=== PATIENT | male | born 1975 | race Caucasian/White ===

== ENCOUNTER 2017-01-24 13:17 | Emergency (ER) | payer OTHER ==
[~2017-01-24] VITALS: Ht 180.3 cm; Wt 109.3 kg
[~2017-01-24 13:17] MED LIST: FLUT1INH INH; METH10TA2 PO; OXYC20TA50 PO; RANI150T3 PO; VNTHFA/IN INH
[2017-01-24 13:22] VITALS: TEMP 37.1; Ht 180.3 cm; Wt 109.3 kg
[2017-01-24] MEDS ORDERED: METHYLPREDNISOLONE 125 MG VIAL IV STA (14:09)
[2017-01-24] MEDS ORDERED: ALBUT/IPRATROP 3MG/0.5MG NEB 3 ML VIAL INH STA ×2 (14:09→16:47)
--- NOTE | 2017-01-24 14:12 | EMERGENCY ROOM VISIT NOTE ---
History Report prepared by Luisa: Matthias Carlisle Under the Supervision of: Dr. Ave Gonzalez M.D. First contact with patient: 14:04 Chief Complaint: RESPIRATORY PROBLEMS Stated Complaint: BREATHING PROBLEMS Nursing Triage Summary: triage note; pt reports "for the past two days my asthma has been acting up." pt reports "i need a breathing tx, i am having trouble taking a breath and my rescue inhaler doesn't affect me." History of Present Illness The patient is a 41 year old male who presents to the Emergency Room with complaints of respiratory problems that began 2 days ago. He has a past medical history of asthma. He notes that he has a rescue inhaler and is on Brio. 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 When he woke up a couple days ago he was having shortness of breath with rib pain brought on by his breathing. He tried to take his inhaler, but it did not help. He denies any pain in his calves or any other abnormal symptoms. He denies any history of blood clots or diabetes. He denies any recent long trips. This has happened to him in the past, but it has been a long time. He does smoke a pack of cigarettes everyday. Source of History: patient Onset: 2 days ago Position: other (Respiratory System) Symptom Intensity: moderate Quality: other (Shortness of breath) Timing: constant Associated Symptoms: + chest pain (tightness with breathing) Note: He denies any other abnormal symptoms. Review of Systems See HPI for pertinent positives & negatives. A total of 10 systems reviewed and were otherwise negative. Past Medical & Surgical Medical Problems: (1) Asthma (2) bulging disk (3) Chronic back pain (4) Hypertension (5) Osteoarthritis Family History FH: heart disease FH: hypertension FH: lung disease Gallbladder disease Social History Smoking Status: Current Every Day Smoker Smokeless Tobacco Use: No Alcohol Use: heavy Drug Use: none Marital Status: Occupation Status: employed Current/Historical Medications Scheduled Fluticasone Furoate-Vilanterol (Breo Ellipta), 1 PUFF INH DAILY Methadone Hcl (Dolophine), 10 MG PO AMPM Oxycodone Hcl (Oxycontin), 20 MG PO QID Prednisone Tab (Prednisone), 10 MG PO DIRECTED Ranitidine Hcl (Zantac), 150 MG PO DAILY Scheduled PRN Albuterol Hfa (Ventolin Hfa), 2 PUFFS INH QID PRN for RESCUE INHALER Allergies Coded Allergies: Acetaminophen (Verified Allergy, Unknown, redness all over body, 01/24/17) Physical Exam Vital Signs Date Time Temp Pulse Resp B/P (MAP) Pulse Ox O2 Delivery O2 Flow Rate FiO2 01/24/17 17:20 74 18 102/58 99 01/24/17 17:00 70 13 105/58 98 Room Air 01/24/17 16:30 76 19 107/66 96 Room Air 01/24/17 15:30 66 25 103/58 92 Room Air 01/24/17 15:00 65 19 105/57 94 Room Air 01/24/17 14:36 73 20 91/66 100 Room Air 01/24/17 14:28 70 01/24/17 13:22 37.1 76 20 116/66 95 Room Air Physical Exam Vital signs reviewed. General: Well-appearing obese male, in no significant distress. HEENT: No scleral icterus, PERRLA, neck supple. Atraumatic. Cardiovascular: Regular rate and rhythm, no extra sounds. Pulmonary: Wheezing the bilateral lung baig. Increased work of breathing. Abdomen: Soft, nontender, nondistended, positive bowel sounds. Musculoskeletal: Atraumatic, no peripheral edema. Neurologic: Patient awake alert and oriented x 3. Skin: Warm, dry, no rash Medical Decision & Procedures ER Provider Diagnostic Interpretation: Radiology results as stated below per my review and radiologist interpretation: SINGLE VIEW CHEST CLINICAL HISTORY: Asthma. FINDINGS: An AP, portable, upright chest radiograph is compared to study dated 06/02/2014. The examination is degraded by portable technique, apical lordotic positioning, and patient rotation. The heart is top normal for projection. The mediastinal contour is within normal limits. Lungs appear mildly hyperinflated. No airspace consolidation, large pleural effusion, or pneumothorax is seen. The bony thorax is grossly intact. IMPRESSION: No acute cardiopulmonary abnormality. Electronically signed by: Rowdy Mckeon M.D. 01/24/2017 3:03 PM Dictated Date/Time: 01/24/2017 3:02 PM CHEST CTA for PULMONARY ARTERIES CT DOSE: 560.68 mGycm HISTORY: Shortness of breath. TECHNIQUE: Multiaxial CT images of the chest were performed following the intravenous administration of contrast to evaluate the pulmonary arteries. Maximal intensity projection images were also obtained. A dose lowering technique was utilized adhering to the principles of ALARA. COMPARISON STUDY: Chest 01/24/2017. FINDINGS: There is a normal caliber thoracic aorta with no evidence for dissection. There is no evidence for pulmonary embolus. No pleural effusions. No pneumothorax. The liver and spleen are unremarkable. There are few enlarged mediastinal lymph nodes. Dominant right peritracheal lymph node measures 2.1 x 1.6 cm. There is enlarged subcarinal lymph node measuring 3.0 x 1.5 cm. A few mildly enlarged bilateral hilar lymph nodes. Mildly enlarged lymph node posterior to the distal esophagus. This measures 1 cm. No suspicious lytic or blastic osseous lesions. The central airways are patent. Mild diffuse bronchial wall thickening. Upper lobe predominant perihilar groundglass airspace opacities seen throughout the lungs. IMPRESSION: 1. No evidence for pulmonary embolus. 2. Upper lobe predominant perihilar groundglass airspace opacities seen throughout the lungs. There is also mild mediastinal and hilar lymphadenopathy. These findings could be seen the setting of an atypical pneumonia, sarcoidosis, or less likely hypersensitivity pneumonitis. Pulmonary consultation is recommended. Electronically signed by: Michael Grace M.D. 01/24/2017 4:38 PM Dictated Date/Time: 01/24/2017 4:28 PM Laboratory Results 01/24/17 14:25 Red Blood Count 4.02, Mean Corpuscular Volume 89.6, Mean Corpuscular Hemoglobin 30.1, Mean Corpuscular Hemoglobin Concent 33.6, Mean Platelet Volume 8.9, Neutrophils (%) (Auto) 63.6, Lymphocytes (%) (Auto) 22.8, Monocytes (%) (Auto) 6.5, Eosinophils (%) (Auto) 6.6, Basophils (%) (Auto) 0.4, Neutrophils # (Auto) 4.91, Lymphocytes # (Auto) 1.76, Monocytes # (Auto) 0.50, Eosinophils # (Auto) 0.51, Basophils # (Auto) 0.03 01/24/17 14:25 Test 01/24/17 14:25 01/24/17 14:30 White Blood Count 7.72 K/uL (4.8-10.8) Red Blood Count 4.02 M/uL (4.7-6.1) Hemoglobin 12.1 g/dL (14.0-18.0) Hematocrit 36.0 % (42-52) Mean Corpuscular Volume 89.6 fL (80-100) Mean Corpuscular Hemoglobin 30.1 pg (25-34) Mean Corpuscular Hemoglobin Concent 33.6 g/dl (32-36) Platelet Count 250 K/uL (130-400) Mean Platelet Volume 8.9 fL (7.4-10.4) Neutrophils (%) (Auto) 63.6 % Lymphocytes (%) (Auto) 22.8 % Monocytes (%) (Auto) 6.5 % Eosinophils (%) (Auto) 6.6 % Basophils (%) (Auto) 0.4 % Neutrophils # (Auto) 4.91 K/uL (1.4-6.5) Lymphocytes # (Auto) 1.76 K/uL (1.2-3.4) Monocytes # (Auto) 0.50 K/uL (0.11-0.59) Eosinophils # (Auto) 0.51 K/uL (0-0.5) Basophils # (Auto) 0.03 K/uL (0-0.2) RDW Standard Deviation 42.8 fL (36.4-46.3) RDW Coefficient of Variation 13.0 % (11.5-14.5) Immature Granulocyte % (Auto) 0.1 % Immature Granulocyte # (Auto) 0.01 K/uL (0.00-0.02) Anion Gap 4.0 mmol/L (3-11) Est Creatinine Clear Calc Drug Dose 156.3 ml/min Estimated GFR () 130.2 Estimated GFR (Non- 112.3 BUN/Creatinine Ratio 17.8 (10-20) Calcium Level 8.4 mg/dl (8.5-10.1) Total Bilirubin 0.4 mg/dl (0.2-1) Direct Bilirubin 0.1 mg/dl (0-0.2) Aspartate Amino Transf (AST/SGOT) 18 U/L (15-37) Alanine Aminotransferase (ALT/SGPT) 17 U/L (12-78) Alkaline Phosphatase 55 U/L (45-117) Total Protein 6.7 gm/dl (6.4-8.2) Albumin 3.2 gm/dl (3.4-5.0) Bedside D-Dimer > 450 ng/mlFEU (0-450) Bedside Troponin I < 0.030 ng/ml (0-0.045) Laboratory results per my review. Medications Administered Medications (Trade) Dose Ordered Sig/Brant Route Start Time Stop Time Status Last Admin Dose Admin Albuterol/ Ipratropium (Duoneb) 3 ml NOW STAT INH 01/24/17 14:09 01/24/17 14:11 DC 01/24/17 14:32 3 ML Methylprednisolone Sodium Succinate (Solu-Medrol IV) 125 mg NOW STAT IV 01/24/17 14:09 01/24/17 14:11 DC 01/24/17 14:32 125 MG Albuterol/ Ipratropium (Duoneb) 3 ml NOW STAT INH 01/24/17 16:47 01/24/17 16:48 DC 01/24/17 17:04 3 ML ECG Indication: SOB/dyspnea Rate (beats per minute): 64 Rhythm: normal sinus Findings: no acute ischemic change, no ectopy ED Course 1404: Past medical records reviewed. The patient was evaluated in room B12B. A complete history and physical examination was performed. 1409: Ordered Solu-Medrol IV 125 mg IV, DuoNeb 3 ml INH 1647: Ordered DuoNeb 3 ml INH 1733: Upon reevaluation, the patient appeared to have improvement of his symptoms. I discussed findings with him. He verbalized agreement of the treatment plan. He was discharged home. Medical Decision Differential diagnosis: Etiologies such as infections, reactive airway disease, pneumonia, pneumothorax , COPD, CHF, cardiac ischemia, pulmonary embolism, musculoskeletal, gastrointestinal, as well as others were entertained. This pt was evaluated and appeared to be in no distress. IV access was obtained and lab work was drawn. Pt was placed on the youth nutritional monitor. He was given a duoneb treatment, IV solumedral. CXR is clear. D-dimer is elevated. Chest CT is negative for pulmonary emboli. There is a concern for "Upper lobe predominant perihilar groundglass airspace opacities seen throughout the lungs. There is also mild mediastinal and hilar lymphadenopathy. These findings could be seen the setting of an atypical pneumonia, sarcoidosis, or less likely hypersensitivity pneumonitis. Pulmonary consultation is recommended." Pt was given a prednisone taper, advised to stop smoking. He will use albuterol 2 puffs every 4 hours as needed. He has a normal WBC and no fever, no ATBx at this time. He will f/u with PCP and pulmonary medicine ALEISHA. He will return to the ED for worsening of symptoms or any medical concerns. Medication Reconcilliation Current Medication List: was personally reviewed by me Blood Pressure Screening Patient's blood pressure: Normal blood pressure Blood pressure disposition: Did not require urgent referral Impression Primary Impression: Reactive airway disease Scribe Attestation The scribe's documentation has been prepared under my direction and personally reviewed by me in its entirety. I confirm that the note above accurately reflects all work, treatment, procedures, and medical decision making performed by me. Departure Information Dispostion Home / Self-Care Prescriptions Prednisone Tab (PREDNISONE) 10 Mg Tab 10 MG PO DIRECTED, #31 TAB 40 mg for 4 days, 30 mg for 3 days, 20 mg for 2 days, 10 mg for 2 days. Prov: Ave Gonzalez M.D. 01/24/17 Referrals Ludwin Garcias M.D. (PCP) Hakan Maza MD Forms HOME CARE DOCUMENTATION FORM, IMPORTANT VISIT INFORMATION, WORK / SCHOOL INSTRUCTIONS Patient Instructions My [facility] Additional Instructions Diagnosis: Reactive airway disease Prednisone 40 mg for 4 more days, 30 mg for 3 days, 20 mg for 2 days, 10 mg for 2 days Albuterol 2 puffs every 6 hours as needed for wheezing. Follow up with Dr Garcias this week. You will need pulmonary medicine consulation (Dr Maza) for CT chest findings. Stop smoking Return to the ED for worsening of symptoms or any medical concerns.
[2017-01-24 14:43] LABS: BASO % 0.4 %; BASO ABS # 0.03 K/uL (0-0.2); COMPLETE YES; EOS % 6.6 %; IG% 0.1 %; LYMPH % 22.8 %; LYMPH ABS # 1.76 K/uL (1.2-3.4); MEAN CELL VOLUME 89.6 fL (80-100); MEAN CORPUSCULAR HEMOGLOBIN 30.1 pg (25-34); MEAN CORPUSCULAR HGB CONC 33.6 g/dl (32-36); MEAN PLATELET VOLUME 8.9 fL (7.4-10.4); MONO % 6.5 %; NEUT % 63.6 %; PLATELET COUNT 250 K/uL (130-400); RED BLOOD COUNT 4.02 M/uL (4.7-6.1); WHITE BLOOD COUNT 7.72 K/uL (4.8-10.8)
[2017-01-24 14:49] LABS: POINT OF CARE TROPONIN I < 0.030 ng/ml (0-0.045)
[2017-01-24 15:00] LABS: BUN/CREATININE RATIO 17.8 (10-20); CALCIUM 8.4 mg/dl (8.5-10.1); CREATININE 0.79 mg/dl (0.60-1.40); POTASSIUM 3.5 mmol/L (3.5-5.1)
--- NOTE | 2017-01-24 15:04 | DIAGNOSTIC IMAGING REPORT ---
SINGLE VIEW CHEST CLINICAL HISTORY: Asthma. FINDINGS: An AP, portable, upright chest radiograph is compared to study dated 06/02/2014. The examination is degraded by portable technique, apical lordotic positioning, and patient rotation. The heart is top normal for projection. The mediastinal contour is within normal limits. Lungs appear mildly hyperinflated. No airspace consolidation, large pleural effusion, or pneumothorax is seen. The bony thorax is grossly intact. IMPRESSION: No acute cardiopulmonary abnormality. Electronically signed by: Rowdy Mckeon M.D. 01/24/2017 3:03 PM Dictated Date/Time: 01/24/2017 3:02 PM
[2017-01-24] MEDS ORDERED: OPTIRAY 320 IV PRN (16:00)
--- NOTE | 2017-01-24 16:39 | DIAGNOSTIC IMAGING REPORT ---
CHEST CTA for PULMONARY ARTERIES CT DOSE: 560.68 mGycm HISTORY: Shortness of breath. TECHNIQUE: Multiaxial CT images of the chest were performed following the intravenous administration of contrast to evaluate the pulmonary arteries. Maximal intensity projection images were also obtained. A dose lowering technique was utilized adhering to the principles of ALARA. COMPARISON STUDY: Chest 01/24/2017. FINDINGS: There is a normal caliber thoracic aorta with no evidence for dissection. There is no evidence for pulmonary embolus. No pleural effusions. No pneumothorax. The liver and spleen are unremarkable. There are few enlarged mediastinal lymph nodes. Dominant right peritracheal lymph node measures 2.1 x 1.6 cm. There is enlarged subcarinal lymph node measuring 3.0 x 1.5 cm. A few mildly enlarged bilateral hilar lymph nodes. Mildly enlarged lymph node posterior to the distal esophagus. This measures 1 cm. No suspicious lytic or blastic osseous lesions. The central airways are patent. Mild diffuse bronchial wall thickening. Upper lobe predominant perihilar groundglass airspace opacities seen throughout the lungs. IMPRESSION: 1. No evidence for pulmonary embolus. 2. Upper lobe predominant perihilar groundglass airspace opacities seen throughout the lungs. There is also mild mediastinal and hilar lymphadenopathy. These findings could be seen the setting of an atypical pneumonia, sarcoidosis, or less likely hypersensitivity pneumonitis. Pulmonary consultation is recommended. Electronically signed by: Michael Grace M.D. 01/24/2017 4:38 PM Dictated Date/Time: 01/24/2017 4:28 PM
[2017-01-24] MEDS ORDERED: PRED10TA PO (17:06)
[2017-01-24 17:20] VITALS: BP 102/58; PULSE 74; O2SAT 99
== END 2017-01-24 17:20 | disposition home or self-care (01) ==
LOC: C.EDB 13:18
DX: J45.909 Unspecified asthma, uncomplicated (principal); F17.210 Nicotine dependence, cigarettes, uncomplicated; I10 Essential (primary) hypertension; Z79.51 Long term (current) use of inhaled steroids; M54.9 Dorsalgia, unspecified; G89.29 Other chronic pain; Z79.52 Long term (current) use of systemic steroids

== ENCOUNTER 2017-04-11 20:43 | Emergency (ER) | payer OTHER ==
[~2017-04-11] VITALS: Ht 182.9 cm; Wt 100.0 kg
[~2017-04-11 20:43] MED LIST changes: +PRED10TA PO
[2017-04-11 20:50] VITALS: TEMP 37.1; Ht 182.9 cm; Wt 100.0 kg
[2017-04-11] MEDS ORDERED: SODIUM CHLORIDE 0.9% 1000ML 1,000 ML IV STA (20:53)
[2017-04-11] MEDS ORDERED: ALBUT/IPRATROP 3MG/0.5MG NEB 3 ML VIAL INH STA (20:53)
[2017-04-11 21:07] VITALS: O2SAT 94
[2017-04-11 21:27] LABS: BASO % 0.2 %; BASO ABS # 0.04 K/uL (0-0.2); COMPLETE YES; EOS % 0.5 %; HEMATOCRIT 41.9 % (42-52); IG% 0.2 %; LYMPH ABS # 0.81 K/uL (1.2-3.4); MEAN CELL VOLUME 92.5 fL (80-100); MEAN CORPUSCULAR HEMOGLOBIN 31.3 pg (25-34); MEAN CORPUSCULAR HGB CONC 33.9 g/dl (32-36); MEAN PLATELET VOLUME 8.9 fL (7.4-10.4); MONO % 9.9 %; NEUT % 85.2 %; PLATELET COUNT 294 K/uL (130-400); RED BLOOD COUNT 4.53 M/uL (4.7-6.1); WHITE BLOOD COUNT 20.17 K/uL (4.8-10.8)
--- NOTE | 2017-04-11 21:30 | DIAGNOSTIC IMAGING REPORT ---
CHEST ONE VIEW PORTABLE CLINICAL HISTORY: Overdose COMPARISON STUDY: Chest radiograph and chest CT January 24, 2017. FINDINGS: Lordotic positioning is noted. No pneumothorax or pleural effusion is noted. Cardiomediastinal silhouette is normal. Pulmonary vascularity is normal. The appearance of the chest is unchanged. IMPRESSION: No acute cardiopulmonary findings. Electronically signed by: Kiran Mora M.D. 04/11/2017 9:29 PM Dictated Date/Time: 04/11/2017 9:28 PM
[2017-04-11 21:36] LABS: PARTIAL THROMBOPLASTIN RATIO 0.8; PROTHROMBIN TIME (PATIENT) 10.1 SECONDS (9.0-12.0)
[2017-04-11 21:52] LABS: ALT/SGPT 20 U/L (12-78); BLOOD UREA NITROGEN 15 mg/dl (7-18); BUN/CREATININE RATIO 12.3 (10-20); CALCIUM 8.2 mg/dl (8.5-10.1); CARBON DIOXIDE 28 mmol/L (21-32); CHLORIDE 105 mmol/L (98-107); CREATININE 1.21 mg/dl (0.60-1.40); GLUCOSE 165 mg/dl (70-99); POTASSIUM 3.7 mmol/L (3.5-5.1); SODIUM 139 mmol/L (136-145)
[2017-04-11 21:53] LABS: ACETAMINOPHEN < 2 ug/ml (10-30)
--- NOTE | 2017-04-11 21:56 | EMERGENCY ROOM VISIT NOTE ---
History Report prepared by Luisa: Makenna Saldaña Under the Supervision of: Dr. Gino Goss M.D. First contact with patient: 20:47 Chief Complaint: OVERDOSE (INTENTIONAL) Stated Complaint: OVERDOSE History of Present Illness The patient is a 41 year old male who presents to the Emergency Room with complaints of an episode of an overdose occurring prior to arrival. The patient states that he was at a friend's house and snorted 3 20 mg Oxycodone. He reports that they are his prescription for his chronic back pain. He states that he is also on Methadone. 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 He reports that his friends were snorting heroine and he blew the straw out before using it for the Oxycodone, but thinks that he may not have gotten it all. Per nursing staff, medics found the patient unresponsive at the dinner table with his oxygen stats in the 50s. Nursing staff states that medics started bagging him and he came to. The patient complains of feeling groggy, a little shortness of breath, and having a dry mouth. The patient notes that he is a smoker. The patient denies drinking alcohol and leg pain. Pt denies headache, fevers, chills, diaphoresis, visual changes, neck pain, chest pain, nausea, vomiting, abdominal pain, back pain, melena, hematochezia, urinary symptoms, numbness, weakness, lymphadenopathy, rash, or other complaints. Source of History: patient, nursing staff Onset: prior to arrival Position: other (global) Quality: other (global) Timing: other (episode) Associated Symptoms: + SOB Note: The patient complains of feeling groggy and having a dry mouth. The patient denies leg pain. Review of Systems See HPI for pertinent positives and negatives. A total of ten systems were reviewed and were otherwise negative. Past Medical & Surgical Medical Problems: (1) Asthma (2) bulging disk (3) Chronic back pain (4) Hypertension (5) Osteoarthritis Family History FH: heart disease FH: hypertension FH: lung disease Gallbladder disease Social History Smoking Status: Current Every Day Smoker Alcohol Use: heavy Drug Use: none Marital Status: Housing Status: lives with significant other Occupation Status: employed Current/Historical Medications Scheduled Fluticasone Furoate-Vilanterol (Breo Ellipta), 1 PUFF INH DAILY Methadone Hcl (Dolophine), 10 MG PO AMPM Oxycodone Hcl (Oxycontin), 20 MG PO QID Scheduled PRN Albuterol Hfa (Ventolin Hfa), 2 PUFFS INH QID PRN for SOB/Wheezing Ranitidine Hcl (Zantac), 150 MG PO DAILY PRN for Heartburn Allergies Coded Allergies: Acetaminophen (Verified Allergy, Unknown, redness all over body, 01/24/17) Physical Exam Vital Signs Date Time Temp Pulse Resp B/P (MAP) Pulse Ox O2 Delivery O2 Flow Rate FiO2 04/12/17 00:33 78 20 99/57 93 Room Air 04/12/17 00:04 87 18 95/60 93 Room Air 04/11/17 23:44 92 20 110/63 93 Room Air 04/11/17 23:17 100 20 137/68 100 04/11/17 22:47 97/52 04/11/17 22:33 95 17 97 04/11/17 22:31 115/70 04/11/17 22:18 101 18 96 04/11/17 22:16 115/71 04/11/17 22:03 101 19 04/11/17 22:01 106/75 04/11/17 21:48 95 18 98 04/11/17 21:43 102 18 99 04/11/17 21:28 104 17 97 04/11/17 21:13 109 15 99 04/11/17 21:10 105 04/11/17 21:07 94 Nasal Cannula 6.0 04/11/17 21:05 90 Room Air 04/11/17 21:05 90 Room Air 04/11/17 20:50 37.1 118 10 113/68 90 Room Air 04/11/17 20:49 113/68 Physical Exam GENERAL: Awake, alert, well-appearing, in no distress, lethargic but arouses to voice HENT: Normocephalic, atraumatic. Oropharynx unremarkable. EYES: Normal conjunctiva. Sclera non-icteric. NECK: Supple. No nuchal rigidity. FROM. No JVD. RESPIRATORY: Wheezing on auscultation. CARDIAC: Tachycardic rate, normal rhythm. Extremities warm and well perfused. Pulses equal. ABDOMEN: Soft, non-distended. No tenderness to palpation. No rebound or guarding. No masses. RECTAL: Deferred. MUSCULOSKELETAL: Chest examination reveals no tenderness. The back is symmetrical on inspection without obvious abnormality. There is no CVA tenderness to palpation. No joint edema. LOWER EXTREMITIES: Calves are equal size bilaterally and non-tender. No edema. No discoloration. NEURO: Normal sensorium. No sensory or motor deficits noted. SKIN: No rash or jaundice noted. Medical Decision & Procedures ER Provider Diagnostic Interpretation: Radiology results as stated below per my review and radiologist interpretation: CHEST ONE VIEW PORTABLE CLINICAL HISTORY: Overdose COMPARISON STUDY: Chest radiograph and chest CT January 24, 2017. FINDINGS: Lordotic positioning is noted. No pneumothorax or pleural effusion is noted. Cardiomediastinal silhouette is normal. Pulmonary vascularity is normal. The appearance of the chest is unchanged. IMPRESSION: No acute cardiopulmonary findings. Electronically signed by: Kiran Mora M.D. 04/11/2017 9:29 PM Dictated Date/Time: 04/11/2017 9:28 PM Laboratory Results 04/11/17 21:16 Red Blood Count 4.53, Mean Corpuscular Volume 92.5, Mean Corpuscular Hemoglobin 31.3, Mean Corpuscular Hemoglobin Concent 33.9, Mean Platelet Volume 8.9, Neutrophils (%) (Auto) 85.2, Lymphocytes (%) (Auto) 4.0, Monocytes (%) (Auto) 9.9, Eosinophils (%) (Auto) 0.5, Basophils (%) (Auto) 0.2, Neutrophils # (Auto) 17.17, Lymphocytes # (Auto) 0.81, Monocytes # (Auto) 2.00, Eosinophils # (Auto) 0.10, Basophils # (Auto) 0.04 04/11/17 21:16 Test 04/11/17 00:00 04/11/17 21:16 Urine Color YELLOW Urine Appearance CLEAR (CLEAR) Urine pH 5.5 (4.5-7.5) Urine Specific [place] 1.021 (1.000-1.030) Urine Protein 1+ (NEG) Urine Glucose (UA) NEG (NEG) Urine Ketones NEG (NEG) Urine Occult Blood 1+ (NEG) Urine Nitrite NEG (NEG) Urine Bilirubin NEG (NEG) Urine Urobilinogen NEG (NEG) Urine Leukocyte Esterase NEG (NEG) Urine WBC (Auto) 1-5 /hpf (0-5) Urine RBC (Auto) 5-10 /hpf (0-4) Urine Hyaline Casts (Auto) >30 /lpf (0-5) Urine Epithelial Cells (Auto) >30 /lpf (0-5) Urine Bacteria (Auto) 1+ (NEG) Urine Renal Epithelial Cells /lpf (0-5) Urine Pathogenic Casts 0-3 GRANULAR CASTS /lpf (0) Urine Mucus PRESENT (NONE PRSENT) Urine Opiates Screen POS (NEG) Urine Methadone, Qualitative POS (NEG) Urine Barbiturates NEG (NEG) Urine Phencyclidine (PCP) Level NEG (NEG) Ur Amphetamine/Methamphetamine NEG (NEG) MDMA (Ecstasy) Screen NEG (NEG) Urine Benzodiazepines Screen NEG (NEG) Urine Cocaine Metabolite POS (NEG) Urine Marijuana (THC) NEG (NEG) White Blood Count 20.17 K/uL (4.8-10.8) Red Blood Count 4.53 M/uL (4.7-6.1) Hemoglobin 14.2 g/dL (14.0-18.0) Hematocrit 41.9 % (42-52) Mean Corpuscular Volume 92.5 fL (80-100) Mean Corpuscular Hemoglobin 31.3 pg (25-34) Mean Corpuscular Hemoglobin Concent 33.9 g/dl (32-36) Platelet Count 294 K/uL (130-400) Mean Platelet Volume 8.9 fL (7.4-10.4) Neutrophils (%) (Auto) 85.2 % Lymphocytes (%) (Auto) 4.0 % Monocytes (%) (Auto) 9.9 % Eosinophils (%) (Auto) 0.5 % Basophils (%) (Auto) 0.2 % Neutrophils # (Auto) 17.17 K/uL (1.4-6.5) Lymphocytes # (Auto) 0.81 K/uL (1.2-3.4) Monocytes # (Auto) 2.00 K/uL (0.11-0.59) Eosinophils # (Auto) 0.10 K/uL (0-0.5) Basophils # (Auto) 0.04 K/uL (0-0.2) RDW Standard Deviation 44.0 fL (36.4-46.3) RDW Coefficient of Variation 13.0 % (11.5-14.5) Immature Granulocyte % (Auto) 0.2 % Immature Granulocyte # (Auto) 0.05 K/uL (0.00-0.02) Prothrombin Time 10.1 SECONDS (9.0-12.0) Prothromb Time International Ratio 1.0 (0.9-1.1) Activated Partial Thromboplast Time 20.9 SECONDS (21.0-31.0) Partial Thromboplastin Ratio 0.8 Anion Gap 7.0 mmol/L (3-11) Est Creatinine Clear Calc Drug Dose 99.4 ml/min Estimated GFR () 86.3 Estimated GFR (Non- 74.4 BUN/Creatinine Ratio 12.3 (10-20) Osmolality 295 mOsm/kg (280-300) Calcium Level 8.2 mg/dl (8.5-10.1) Total Bilirubin 0.2 mg/dl (0.2-1) Direct Bilirubin < 0.1 mg/dl (0-0.2) Aspartate Amino Transf (AST/SGOT) 11 U/L (15-37) Alanine Aminotransferase (ALT/SGPT) 20 U/L (12-78) Alkaline Phosphatase 62 U/L (45-117) Total Creatine Kinase 74 U/L (39-308) Troponin I < 0.015 ng/ml (0-0.045) Total Protein 7.3 gm/dl (6.4-8.2) Albumin 3.7 gm/dl (3.4-5.0) Lipase 69 U/L (73-393) Salicylates Level 3.6 mg/dl (2.8-20) Acetaminophen Level < 2 ug/ml (10-30) Ethyl Alcohol mg/dL < 3.0 mg/dl (0-3) Laboratory results reviewed by me Medications Administered Medications (Trade) Dose Ordered Sig/Brant Route Start Time Stop Time Status Last Admin Dose Admin Sodium Chloride 1,000 ml @ 999 mls/hr Q1H1M STAT IV 04/11/17 20:53 04/11/17 21:53 DC 04/11/17 21:19 999 MLS/HR Albuterol/ Ipratropium (Duoneb) 3 ml NOW STAT INH 04/11/17 20:53 04/11/17 20:55 DC 04/11/17 20:50 3 ML ECG Indication: toxicologic Rate (beats per minute): 99 Rhythm: normal sinus Findings: no acute ischemic change, no ectopy Change: Repeat ECG revealed normal sinus rhythm at 82 bpm. No ischemia, no ectopy, or pericarditis. No change from prior. ED Course 2047: The patient was evaluated in room B9. A complete history and physical exam was performed. 2052: Ordered Duoneb 3 ml INH, NSS 100 ml @ 999 mls/hr IV. 5: I reevaluated the patient and he is is feeling better. 2330: The patient was reevaluated and feels better. His opiate intoxication is clearing. 0010: Patient was reevaluated. He is awake and alert. He was taken off oxygen. 0035: Patient was reassessed. He is not hypoxic. He has no shortness of breath. His lungs are clear. He feels much better. He was counseled on his misuse of the medication.I gave my usual and customary discussion regarding this issue. Return instructions were outlined and he was discharged in stable condition. Medical Decision Prior records/ancillary studies reviewed. Triage Nursing notes reviewed and agree them. The patient's history was concerning for altered mental status and probable overdose. Differential diagnosis: Etiologies such as toxicologic, infection, hypoglycemia, electrolyte abnormalities, cardiac sources, intracerebral event, neurologic, noncardiogenic pulmonary edema, as well as others were entertained. Physical examination: The patient had mildly altered sensorium. No trauma noted. ER treatment provided: IV NSS 1 L bolus DuoNeb Diagnostic interpretation by me: The electrocardiogram was negative for pathologic change. There was no QRS widening or interval prolongation. The labs revealed significant leukocytosis 20,000 which is suspect is a stress response from his near experience. Alcohol negative. Chemistries unremarkable. Imaging studies: X-ray as above The patient has a history of narcotic addiction. He is on a significant amount of pain medication from pain management. I asked him to contact his primary physician for follow-up. He was instructed to seek counseling and consider rehabilitation services. I had a long discussion about having Narcan available and instructions were given. By the evaluation outlined above other emergent etiologies such as those listed in the differential, as well as others, were deemed relatively unlikely. The patient was educated about the findings as listed above. All questions were answered and the patient was pleased with the treatment. Return instructions were outlined and the patient was discharged in stable condition. The patient was referred to his PCP tomorrow for follow-up for a recheck of the current condition. [place] Drug Monitoring Program Search Results: patient reviewed within database Drug Monitoring Findings: In the last 12 months the patient has received 2174 narcotic pills from pain management. Medication Reconcilliation Current Medication List: was personally reviewed by me Impression Primary Impression: Narcotic overdose Scribe Attestation The scribe's documentation has been prepared under my direction and personally reviewed by me in its entirety. I confirm that the note above accurately reflects all work, treatment, procedures, and medical decision making performed by me. Departure Information Dispostion Home / Self-Care Referrals Ludwin Garcias M.D. (PCP) Patient Instructions My [facility] Additional Instructions Follow-up with your primary office this week. Discuss your pain management. Discussed counseling and rehabilitation. Go to your pharmacy and chicken picker a dose of naloxone (Narcan) and read the instructions on the box. This medication can be given if an overdose of opiates occurs. Do not take medications or drugs improperly or in a way that was not prescribed to you. Return to the ER for worsening chest pain, difficulty breathing, fevers, vomiting, worsening of your condition, or as needed. Do not drive until cleared by your primary physician.
[2017-04-11 21:57] LABS: ALKALINE PHOSPHATASE 62 U/L (45-117); AST/SGOT 11 U/L (15-37)
[2017-04-11 22:17] LABS: BENZODIAZEPINE, URINE NEG (NEG); COCAINE,URINE POS (NEG); PHENCYCLIDINE, URINE NEG (NEG)
[2017-04-11 22:25] LABS: URINE APPEARANCE CLEAR (CLEAR); URINE BILIRUBIN NEG (NEG); URINE COLOR YELLOW; URINE EPITHELIAL CELL AUTO >30 /lpf (0-5); URINE NITRITE NEG (NEG); URINE PH 5.5 (4.5-7.5); URINE SPECIFIC GRAVITY 1.021 (1.000-1.030); UROBILINOGEN NEG (NEG)
[2017-04-11 22:28] LABS: MANUAL MICROSCOPIC REQUIRED? NO; REVIEW REQ? YES
[2017-04-11 22:36] LABS: URINE MUCUS PRESENT (NONE PRSENT)
[2017-04-11 22:39] LABS: URINE PATH CASTS 0-3 GRANULAR CASTS /lpf (0)
[2017-04-12 00:33] VITALS: BP 99/57; PULSE 78; O2SAT 93
[2017-04-14 09:54] LABS: COCAINE, URINE 22900 NG/ML (CUTOFF=100); COD UR NEGATIVE NG/ML (CUTOFF=50); HYDROCOD UR NEGATIVE NG/ML (CUTOFF=50); HYDROMOR UR NEGATIVE NG/ML (CUTOFF=50); METHADONE METABOLITE 470 NG/ML (CUTOFF=100); METHADONE VERIFIC 269 NG/ML (CUTOFF=100); MORPHINE UR 2590 NG/ML (CUTOFF=50); NORHYDROCODONE CONF UR NEGATIVE NG/ML (CUTOFF=50); OXYMORPH UR 175 NG/ML (CUTOFF=50)
== END 2017-04-12 00:54 | disposition home or self-care (01) ==
LOC: EDBD 20:43 → C.EDB 20:45
DX: T40.602A Poisoning by unspecified narcotics, intentional self-harm, initial encounter (principal); R06.02 Shortness of breath; M54.9 Dorsalgia, unspecified; G89.29 Other chronic pain; I10 Essential (primary) hypertension; M19.90 Unspecified osteoarthritis, unspecified site; J45.909 Unspecified asthma, uncomplicated; Z79.899 Other long term (current) drug therapy; F17.200 Nicotine dependence, unspecified, uncomplicated; Z82.49 Family history of ischemic heart disease and other diseases of the circulatory system; Z83.6 Family history of other diseases of the respiratory system; Z83.79 Family history of other diseases of the digestive system

== ENCOUNTER 2019-06-10 13:01 | Inpatient (IN) ==
--- OUTSIDE RECORDS SUMMARY | 2019-06-10 13:03 | External Medical Summary | Continuity of Care Document ---
:1975 Author Name Tomas M.DQue Address Unavailable Unavailable , Care Team Providers Name Role Phone Unavailable Unavailable Unavailable PCP, NO Unavailable Unavailable Unavailable Unavailable Unavailable Problems Kidney lesion (593.9) (N28.9) Symptomatic cholelithiasis (574.20) (K80.20) Allergies and Adverse Reactions Tylenol (Allergy) Reaction: Rash Medications No Reported Medications , M.D. Refills: 0 Procedures Procedures not documented Immunizations Immunizations not documented Social History - Smoking Status Smokes tobacco daily Plan of Treatment Planned Observations Planned Goals not documented Results No Known Results Results not documented
[2019-06-10 13:29] LABS: Basophils # (auto) 0.22 K/uL (0-0.2); Eosinophils # (auto) 0.44 K/uL (0-0.5); Eosinophils % (auto) 5.9 %; Hematocrit (blood only) 45.4 % (42-52); Hemoglobin 16.2 g/dL (14.0-18.0); Immature Granulocytes # (auto) 0.02 K/uL (0.00-0.02); Immature Granulocytes % (auto) 0.3 %; Lymphocytes # (auto) 3.44 K/uL (1.2-3.4); Lymphocytes % (auto) 46.4 %; Mean Corpuscular Hemoglobin 30.5 pg (25-34); Mean Corpuscular Hgb Conc 35.7 g/dL (32-36); Mean Corpuscular Volume 85.3 fL (80-100); Mean Platelet Volume 9.7 fL (7.4-10.4); Monocytes % (auto) 8.1 %; Neutrophils # (auto) 2.69 K/uL (1.4-6.5); Neutrophils % (auto) 36.3 %; Platelet Count 144 K/uL (130-400); RDW Coefficient of Variation 13.7 % (11.5-14.5); RDW Standard Deviation 42.6 fL (36.4-46.3); Red Blood Count 5.32 M/uL (4.7-6.1); White Blood Count 7.41 K/uL (4.8-10.8)
[2019-06-10] MEDS ORDERED: KETOROLAC TROMETHAMINE 15 MG/ML VIAL IV ONE (13:30)
[2019-06-10] MEDS ORDERED: ONDANSETRON INJ 2 MG/ML 2 ML VIAL IV STA (13:30)
[2019-06-10] MEDS ORDERED: SODIUM CHLORIDE 0.9% 1000ML 2,000 ML IV ONE (13:30)
[2019-06-10 13:49] LABS: Albumin Level 3.1 gm/dl (3.4-5.0); BUN Creatinine Ratio 10.4 (10-20); Calcium 8.9 mg/dl (8.5-10.1); Creatinine Clr Calc Pharmacy 152.7 ml/min; Est GFR (African American) 126.4; Est GFR (Non-African American) 109.1; Potassium 3.7 mmol/L (3.5-5.1)
[2019-06-10 13:56] LABS: Albumin Globulin Ratio 0.7 (0.9-2); Bilirubin,Total 4.5 mg/dl (0.2-1); Globulin 4.3 gm/dl (2.5-4.0); Total Protein 7.4 gm/dl (6.4-8.2)
[2019-06-10] MEDS ORDERED: IOVERSOL 100ml IV PRN (13:57)
--- NOTE | 2019-06-10 14:28 | CT Scan Report ---
ABDOMEN AND PELVIS CT WITH IV CONTRAST CT DOSE: 1010.85 mGycm HISTORY: Mid abdominal pain TECHNIQUE: Multiaxial CT images of the abdomen and pelvis were performed following the use of intrave nous contrast. A dose lowering technique was utilized adhering to the principles of ALARA. COMPARISON STUDY: Abdomen and pelvis CT 08/01/2014. FINDINGS: Small focus of tree-in-bud nodular densities within the base of the right lower lobe. No pn eumoperitoneum. No pneumatosis. No fractures within the visualized osseous structures. Mildly enlarge d distal paraesophageal lymph node best seen on image 53. This has slightly increased in size. This m easures 12 mm in short axis diameter. There is also periportal lymphadenopathy. There is mild inflamm atory change surrounding the second and third portion of the duodenum which demonstrate associated wa ll thickening. Mild edema tracking along the right paracolic gutter. Mild inflammatory change at the pancreatic head and angela hepatis. The main portal vein is patent. There is a punctate stone within t he left kidney. The right kidney enhances normally. No hydronephrosis. No hepatic masses. Prior andres cystectomy. Trace pelvic free fluid. The bladder is decompressed. No evidence for bowel obstruction. Normal appendix. Normal adrenal glands and spleen. IMPRESSION: 1. Bowel wall thickening involving the second and third portion of the duodenum with adjacent inflamm atory change and edema tracking along the right paracolic gutter. Findings favor a duodenitis/peptic ulcer disease. A groove pancreatitis could also have a similar appearance. Recommend correlation with pancreatic enzymes. 2. Periportal and distal paraesophageal lymphadenopathy which could be reactive. Follow-up recommende d to ensure resolution. 3. In addition, follow-up endoscopy is recommended for further evaluation of the duodenal abnormality . 4. Small cluster of tree-in-bud nodular opacities within the base of the right lower lobe. This favor s inflammatory/infectious process. ACT 112: Negative or not required by law. Electronically signed by: Michael Grace M.D. 06/10/2019 2:27 PM
[2019-06-10] MEDS ORDERED: AcetylCYSTEINE 15,000 MG in DEXTROSE 5% 200 ML IV ONE (14:52)
[2019-06-10 14:56] LABS: INR 1.2 (0.9-1.1); Prothrombin Time 11.8 Seconds (9.0-12.0)
[2019-06-10 14:58] LABS: Appearance Urine Clear (Clear); Blood Urine 3+ (Negative); Color Urine Amber; Glucose Urine UA Trace (Negative); Ketones Urine Trace (Negative); Leukocyte Esterase Urine Trace (Negative); Nitrite Urine Positive (Negative); Protein Urine 1+ (Negative); Urobilinogen Urine Positive (Negative); pH Urine 6.5 (4.5-7.5)
[2019-06-10 15:15] LABS: Bilirubin Urine 3+ (Negative); Ictotest Urine Positive (Negative)
[2019-06-10 15:19] LABS: Bacteria Urine 1+ (Negative); Hyaline Casts Urine 0-5 /lpf (0-5); Mucus Urine Present (None Prsent)
[2019-06-10 15:20] LABS: Sperm Urine Present (None Prsent)
--- NOTE | 2019-06-10 15:54 | History & Physical Report ---
Date of Service June 10, 2019 Assessment & Plan (1) RUQ abdominal pain: (2) LFT elevation: Pt is 43 y/o M with PMH opioid, methamphetamine drug abuse, currently on buprenorphine, asthma, tobacco use presented to ER with c/o abdominal pain today and dark yellow urine, fatigue and sweats x 4 days. Denies fever. Took 2 doses of 2GM Tylenol last night and this morning. In ER afebrile, P: 98 down to 74, R: 18, BP: 119/84, 95% on RA. WBC: 7, INR: 1.2, T Bili: 4.5, AST: 577, ALT: 1447, Alk Phos: 219, Lipase: 65 CT ABD/PELVIS: 1. Bowel wall thickening involving the second and third portion of the duodenum with adjacent inflammatory change and edema tracking along the right paracolic gutter. Findings favor a duodenitis/peptic ulcer disease. A groove pancreatitis could also have a similar appearance. Recommend correlation with pancreatic enzymes. 2. Periportal and distal paraesophageal lymphadenopathy which could be reactive. Follow-up recommended to ensure resolution. 3. In addition, follow-up endoscopy is recommended for further evaluation of the duodenal abnormality. 4. Small cluster of tree-in-bud nodular opacities within the base of the right lower lobe. This favors inflammatory/infectious process. DDX: pancreatitis, choledocholithiasis, acute liver injury, hepatitis, cholangitis -Tylenol level unable to be calculated secondary to icteric specimen -In ER pt given Mucomyst, 2L NSS, Zofran, Toradol -Pending urine tox screen, ETOH level, acute hepatitis panel, pending UA -LR -NPO -GI consult, Shanique METZGER aware, ERCP considered -CBC, Liver profile, CMP, lipase in am (3) Asthma: -Hold home albuterol inhaler -Albuterol nebs scheduled as has scattered wheezing (4) History of drug abuse: History opioid, methamphetamine use. Reports last used 11/2018 Currently on buprenorphine, Follows with [facility] -Will continue buprenorphine for now (5) Chronic back pain: Does not use gabapentin regularly -Hold gabapentin currently (6) Tobacco use: -Smoking cessation encouraged -Denies nicotine patch at this time DVT Prophylaxis -Low risk - Ambulate Pt does not follows with PCP for routine care. Reports previously followed with Dr Garcias Pt was seen and care coordinated with Dr Yates. See addendum History of Present Illness Chief Complaint: Abdominal pain Primary Care Provider: NO PCP Pt is 43 y/o M with PMH opioid, methamphetamine drug abuse, currently on buprenorphine, asthma, tobacco use presented to ER with c/o abdominal pain. Pt reports past 4 days noticed dark yellow urine and yesterday noticed green color hard formed stool. Also states past 4 days with fatigue and sweats. States taking his temperature at home and no noted fevers. This morning started with aching to RUQ. Pt initially denies nausea but reports nausea last night. Denies vomiting or diarrhea. Reports intermittent heartburn. Ate pancakes for breakfast this morning. Last night took 2GM Tylenol and this morning took 2 GM Tylenol. Chronic back pain and reports takes Ibuprofen 800mg three times a day approx 5 times a week. Denies alcohol use. Reports last used methamphetamines in 11/2018. Pt on buprenorphine and denies any other recent drug use. Denies herbal drugs, mushroom use. Denies h/o IV drug abuse. Hx tattoo. H/O cholecystectomy. Denies melena, hematochezia, BROOKE, dizziness, syncope, vision changes, neck pain, CP, SOB, orthopnea, palpitations, cough, sore throat, choking, otalgia, rhinorrhea, paresthesias, weakness, extremity weakness, extremity edema, rashes, dysuria, urinary frequency or retention. Allergies Allergy/AdvReac Type Severity Reaction Status Date / Time acetaminophen Allergy Unknown redness Verified 06/10/19 14:28 all over body Home Medications Home Medications Medication Instructions Recorded Confirmed Type acetaminophen [Tylenol Extra 500 mg PO Q6H PRN 06/10/19 06/10/19 History Strength] albuterol sulfate 1 - 2 puff INHALATION Q4H PRN 06/10/19 06/10/19 History buprenorphine HCl 8 mg SUBLINGUAL BID 06/10/19 06/10/19 History gabapentin 400 mg PO TID 06/10/19 06/10/19 History Past Med/Surg History Medical History Asthma Biliary colic (Acute) Chronic back pain History of drug abuse Narcotic overdose (Inactive) Osteoarthritis Reactive airway disease (Inactive) Tobacco use Surgical History History of cholecystectomy Family History Other Dementia Social History Preferred Language: Scottish Communication Ability: Effective 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 Feels Safe at Home: Yes Safety Concerns: Feels Safe At This Time Smoking Status: Current every day smoker Tobacco Type: cigarettes ; Cigarettes Per Day: 1 PPD ; Do You Dip or Chew Tobacco: No ; Second Hand Exposure: No ; Hx Alcohol Use: No Hx Substance Use: Yes substance use type: prescription drug Substance Use Type Other:: subutex twice daily prescribed Last Used Substance: Hours (ago) Review of Systems Review of Systems: All systems reviewed & are unremarkable except as noted in HPI & below Physical Exam Physical Exam: General: no distress, obese Head: normocephalic, atraumatic Eyes: PERRL, EOM's intact, conjunctiva non-injected, +icteric ENT: normal inspection external ears, nose, mucous membranes mildly dry Neck: supple, trachea midline Lungs: no respiratory distress, +scattered wheezing, no rhonchi, rales CV: RRR, no murmur, no pretibial edema Abd: normal BS, protuberant, soft, + tenderness to palpation RUQ Ext: no cyanosis, no calf tenderness Neuro: A&O x 3, no focal deficits noted, normal affect Skin: warm, dry Results & Data Vital Signs (Past 12 Hours) Vital Signs Temp Pulse Resp BP Pulse Ox 06/10/19 15:40 79 17 100 06/10/19 15:31 79 16 99 06/10/19 15:30 79 18 122/79 99 06/10/19 15:20 78 16 98 06/10/19 15:10 74 24 95 06/10/19 15:01 82 97 06/10/19 15:00 71 127/74 98 06/10/19 14:50 82 24 97 06/10/19 14:40 80 18 99 06/10/19 14:31 76 14 94 06/10/19 14:30 74 21 125/73 94 06/10/19 14:20 82 25 H 97 06/10/19 14:10 85 20 97 06/10/19 14:02 81 19 113/81 95 06/10/19 14:01 98 06/10/19 13:50 85 22 96 06/10/19 13:47 83 13 98 06/10/19 13:42 82 17 123/91 95 06/10/19 13:36 96 06/10/19 13:02 36.8 C 98 H 18 119/84 95 Laboratory Results Short CBC 06/10/19 Range/Units 13:21 WBC 7.41 (4.8-10.8) K/uL Hgb 16.2 (14.0-18.0) g/dL Hct 45.4 (42-52) % Plt Count 144 (130-400) K/uL BMP 06/10/19 13:21 Sodium 136 Potassium 3.7 Chloride 104 Carbon Dioxide 27 BUN 9 Creatinine 0.82 Glucose 163 H Calcium 8.9 Liver Function 06/10/19 Range/Units 13:21 Total Bilirubin 4.5 H (0.2-1) mg/dl AST 577 H (15-37) U/L ALT 1447 H (12-78) U/L Alkaline Phosphatase 219 H (45-117) U/L Albumin 3.1 L (3.4-5.0) gm/dl Urine 06/10/19 Range/Units 13:35 Urine Color Jaclyn Urine Appearance Clear (Clear) Urine pH 6.5 (4.5-7.5) Ur Specific [place] 1.020 (1.000-1.030) Urine Protein 1+ H (Negative) Urine Glucose (UA) Trace H (Negative) Diagnostic Findings CT ABD/PELVIS WITH CONTRAST: IMPRESSION: 1. Bowel wall thickening involving the second and third portion of the duodenum with adjacent inflammatory change and edema tracking along the right paracolic gutter. Findings favor a duodenitis/peptic ulcer disease. A groove pancreatitis could also have a similar appearance. Recommend correlation with pancreatic enzymes. 2. Periportal and distal paraesophageal lymphadenopathy which could be reactive. Follow-up recommended to ensure resolution. 3. In addition, follow-up endoscopy is recommended for further evaluation of the duodenal abnormality. 4. Small cluster of tree-in-bud nodular opacities within the base of the right lower lobe. This favors inflammatory/infectious process. Code Status & VTE Plan VTE Prophylaxis Plan VTE Prophylaxis will be ordered: No Supervising Physician Co-Signing Physician Notes HISTORY: Record reviewed. Patient interviewed and examined. Care coordinated with Ramona Colón PA-C. Please refer to her documentation for complete history. Briefly, 43-year-old male with history of asthma, chronic back pain, drug abuse currently on buprenorphine. Presented to the ED complaining of epigastric pain, malaise, dark urine. Nondrinker. Taking large doses of acetaminophen for headaches and pain (2000 mg at a time), but states that he has only taken 4 doses over past week. Has not ingested any wild mushrooms. Not on statin. EXAM: General- no distress Eyes- ? icteric sclerae (lighting suboptimal) Lungs- clear to auscultation; no respiratory distress Cardiovascular- RRR; no murmur; no gallop; no JVD; no pretibial edema Abdomen- + bowel sounds, soft, moderate epigastric tenderness Extremities- no cyanosis; no calf tenderness Neuro- alert, oriented Skin- warm & dry DATA: Hemoglobin 16.2, white count 7410, platelet count 144,000. PT 11.8, INR 1.2. Normal electrolytes, BUN 9, creatinine 0.82, random glucose 163. Total bilirubin 4.5, AST 577, ALT 1447, alkaline phosphatase 219. Lipase 65. Urine tox screen + for amphetamines / methamphetamines (preliminary). Other lab studies as noted. CT of abdomen and pelvis demonstrated bowel wall thickening involving the second third portion of the duodenum with adjacent inflammatory change and edema tracking along the right paracolic gutter. Findings suggested duodenitis/peptic ulcer disease. Periportal and distal periesophageal lymphadenopathy noted. ASSESSMENT AND PLAN: Elevated LFTs. History of drug abuse. Urine tox screen + for amphetamines / methamphetamines (preliminary). Denies consumption of alcoholic beverages. Blood alcohol undetectable. Status post cholecystectomy. Consider viral hepatitis (hepatitis A, hepatitis B, hepatitis C, CMV, EBV). Consider medication/chemical etiology. Consider choledocholithiasis. Using excessive amounts of acetaminophen. Unable to determine acetaminophen level because serum was icteric. Acetaminophen toxicity unlikely, but best to plate safe and treat with course of intravenous acetylcysteine. Hepatitis panel ordered and pending. GI consulted for their input and further evaluation. Please refer to LEATHA Colón's documentation for discussion of other issues.
--- NOTE | 2019-06-10 16:10 | Gastrointestinal Consultation ---
Date of Consultation June 10, 2019 Assessment & Plan (1) LFT elevation: (2) RUQ abdominal pain: (3) History of drug abuse: Pt is a 43 y/o male who presented RUQ abd pain, dark urine x 4 days, LFTs noted to be up, CT abd/pelvis showed signs of possible duodenitis/PUD vs ? groove pancreatitis though Lipase was normal. He is s/p cholecystectomy. Suspect likely has choledocholithiasis - Keep NPO - LR @ 200mL/hr - Check acute hepatitis panel, autoimmune liver dz serologies and urine to xicology & ETOH levels - EUS/ERCP by Dr. Hilliard in OR tomorrow. Defer MRCP for now. Attg add (late entry from yesterday): I interviewed and examined pt, reviewed chart and labs. Pt admit with abrupt onset of RUQ pain and dark urine, note to have increased transaminases and bili / nl lipase. + urine bilirubin. CT shows ? groove panc, inflamm 2nd portion duodenum; no benjamin dil. LFTs WNL in 2017. HCV pos. U tox prelim pos meth. Denies APAP. Possible choledocholithiasis - plan EUS +/- ERCP tomorrow. History of Present Illness Reason for Consultation: Elevated LFTs, abd pain Requesting Physician: Dr. Stan Israel Attending Physician: Dr. César Clemons History of Present Illness Pt is a 43 y/o male, who presented to ED w c/o RUQ abd pain, mild nausea, dark urine and yellowish stools x 4 days. He denies any fever, chills, CP, SOB. On eval it's noted that his LFTs are up: Tbili 4.5, AST 577, ALT 1447, Alk phos 219. Lipase normal 69+ urine bilirubin, blood, leukocyte esterase, bacteria. CT abd/pelvis w contrast: 1. Bowel wall thickening involving the second and third portion of the duodenum with adjacent inflammatory change and edema tracking along the right paracolic gutter. Findings favor a duodenitis/peptic ulcer disease. A groove pancreatitis could also have a similar appearance. Recommend correlation with pancreatic enzymes. 2. Periportal and distal paraesophageal lymphadenopathy which could be reactive. Follow-up recommended to ensure resolution. 3. In addition, follow-up endoscopy is recommended for further evaluation of the duodenal abnormality. 4. Small cluster of tree-in-bud nodular opacities within the base of the right lower lobe. This favors inflammatory/infectious process He has hx of opioid, methadone, cocaine intranasal uses. Denies uses of these since November 2018. Denies ETOH/marijuana abuses. Smokes 1PPD tobacco. He was taking Tylenol and previously Ibuprofen for abd and leg pains. + tatoo on L shoulder area. Denies herbal supplements, steroids. Denies family hx of autoimmune diseases. Allergies Allergy/AdvReac Type Severity Reaction Status Date / Time acetaminophen Allergy Unknown redness Verified 06/10/19 14:28 all over body Home Medications Home Medications Medication Instructions Recorded Confirmed Type acetaminophen [Tylenol Extra 500 mg PO Q6H PRN 06/10/19 06/10/19 History Strength] albuterol sulfate 1 - 2 puff INHALATION Q4H PRN 06/10/19 06/10/19 History buprenorphine HCl 8 mg SUBLINGUAL BID 06/10/19 06/10/19 History gabapentin 400 mg PO TID 06/10/19 06/10/19 History Patient History Medical History Asthma Biliary colic (Acute) Chronic back pain History of drug abuse Narcotic overdose (Inactive) Osteoarthritis Reactive airway disease (Inactive) Tobacco use Surgical History History of cholecystectomy Family History Other Dementia Social History Preferred Language: Divehi Communication Ability: Effective 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 Feels Safe at Home: Yes Safety Concerns: Feels Safe At This Time Smoking Status: Current every day smoker Tobacco Type: cigarettes ; Cigarettes Per Day: 1 PPD ; Do You Dip or Chew Tobacco: No ; Second Hand Exposure: No ; Hx Alcohol Use: No Hx Substance Use: Yes substance use type: prescription drug Substance Use Type Other:: subutex twice daily prescribed Last Used Substance: Hours (ago) Review of Systems Review of Systems: All systems reviewed & are unremarkable except as noted in HPI & below Physical Exam Constitutional: WD/WN, vitals as above well groomed, cooperative and comfor table Eyes: + scleral abnormality (mild icterus), PERRL and EOM intact bilaterally ENMT: external ear and nose normal, oropharynx normal Respiratory: normal respiratory effort, lungs clear to auscultation Cardiovascular: RRR, no murmur, no edema Gastrointestinal (Abdomen): Inspection/Auscultation: normal bowel sounds Percussion/Palpation: + abdomen tender (RUQ ) and abdomen soft Skin: no rashes, warm and dry no jaundice Psychiatric: A+Ox3, euthymic affect Lymphatic: no lymphedema Results & Data ([facility]) Vital Signs (Past 12 Hours) Vital Signs Temp Pulse Resp BP Pulse Ox 06/10/19 15:40 79 17 100 06/10/19 15:31 79 16 99 06/10/19 15:30 79 18 122/79 99 06/10/19 15:20 78 16 98 06/10/19 15:10 74 24 95 06/10/19 15:01 82 97 06/10/19 15:00 71 127/74 98 06/10/19 14:50 82 24 97 06/10/19 14:40 80 18 99 06/10/19 14:31 76 14 94 06/10/19 14:30 74 21 125/73 94 06/10/19 14:20 82 25 H 97 06/10/19 14:10 85 20 97 06/10/19 14:02 81 19 113/81 95 06/10/19 14:01 98 06/10/19 13:50 85 22 96 06/10/19 13:47 83 13 98 06/10/19 13:42 82 17 123/91 95 06/10/19 13:36 96 06/10/19 13:02 36.8 C 98 H 18 119/84 95
[2019-06-10] MEDS ORDERED: ONDANSETRON INJ 2 MG/ML 2 ML VIAL IV PRN (16:45)
[2019-06-10] MEDS: LACTATED RINGER'S 1,000 ML IV SCH (16:54)
[2019-06-10 17:15] LABS: Hepatitis B Surface Antigen Neg (Neg)
--- NOTE | 2019-06-10 17:19 | Emergency Department Note ---
Entered by Sally Kelley acting as a scribe for Stan Israel DO History of Present Illness General Chief complaint: GI Assessment Stated complaint: BLOATED, HARD STOMACH, SWEATS Source: patient History of Present Illness Onset (ago): day(s) 3 Location: abdomen Pain Consistency: + other (persistent) Maximum Pain Intensity: 3 Quality: + other (stiffness) Relieved By: + cold therapy (cold water) Associated symptoms: + nausea/vomiting (Positive nausea. Negative vomiting. ) and + other (Positive neon colored urine, green colored stool, abdominal pain. Negative dysuria. ) The patient is a 43 year old male presenting to the Emergency Department complaining of persistent abdominal pain starting 3 days ago. The patient reports that he has upper abdominal pain. He describes this pain as a stiffness and explains that his stomach feels stiff. He states that he is nauseous but hasnt vomited. He explains that drinking cold water helps to soothe his abdominal pain. He notes that his urine is neon yellow and that his stool is neon green. He adds that he had a bowel movement CABLE FORMER and that it was normal apart from the color of his stool. The patient reports that he has been experi encing episodes of cold sweats for the past 5 days. He denies dysuria. He does admit that last night he took 2 g of Tylenol at once and this morning he took another 2 g of Tylenol. Admits to previous cholecystectomy. Pain does feel similar but is different. Home Medications Home Medications Medication Instructions Recorded Confirmed Type acetaminophen [Tylenol Extra 500 mg PO Q6H PRN 06/10/19 06/10/19 History Strength] albuterol sulfate 1 - 2 puff INHALATION Q4H PRN 06/10/19 06/10/19 History buprenorphine HCl 8 mg SUBLINGUAL BID 06/10/19 06/10/19 History gabapentin 400 mg PO TID 06/10/19 06/10/19 History Allergies Allergy/AdvReac Type Severity Reaction Status Date / Time acetaminophen Allergy Unknown redness Verified 06/10/19 14:28 all over body Past Med/Surg History Medical History Asthma Biliary colic (Acute) Chronic back pain History of drug abuse Narcotic overdose (Inactive) Osteoarthritis Reactive airway disease (Inactive) Tobacco use Surgical History History of cholecystectomy Family History Other Dementia Social History Feels Safe at Home: Yes Smoking Status: Current every day smoker Cigarettes Per Day: 1 ppd x 25 years ; Hx Alcohol Use: No Hx Substance Use: Yes (Former substance user - opioids, methamphetamine) Review of Systems See HPI for pertinent positives & negatives. and A total of 10 systems reviewed and were otherwise negative Physical Exam Vital Signs Vital Signs - 24 hr 06/10/19 13:02 06/10/19 13:36 06/10/19 13:42 Temperature 36.8 C Temperature Source Oral Pulse Rate 98 H 82 Pulse Rate from SpO2 Sensor 82 Respiratory Rate 18 17 Respiratory Effort / Characteristics Non-Labored Respiratory Depth Normal Blood Pressure 119/84 123/91 Blood Pressure Mean 95 111 Pulse Oximetry 95 96 95 Oxygen Delivery Method Room Air Room Air Sepsis Recent Fever Within 48 Hours No Sepsis New/Unexplained Change in Mental Status No Sepsis Action Taken by Nursing No Action Required 06/10/19 13:47 06/10/19 13:50 06/10/19 14:01 Temperature Temperature Source Pulse Rate 83 85 Pulse Rate from SpO2 Sensor 80 85 81 Respiratory Rate 13 22 Respiratory Effort / Characteristics Respiratory Depth Blood Pressure Blood Pressure Mean Pulse Oximetry 98 96 98 Oxygen Delivery Method Sepsis Recent Fever Within 48 Hours Sepsis New/Unexplained Change in Mental Status Sepsis Action Taken by Nursing 06/10/19 14:02 06/10/19 14:10 06/10/19 14:20 Temperature Temperature Source Pulse Rate 81 85 82 Pulse Rate from SpO2 Sensor 83 85 81 Respiratory Rate 19 20 25 H Respiratory Effort / Characteristics Respiratory Depth Blood Pressure 113/81 Blood Pressure Mean 86 Pulse Oximetry 95 97 97 Oxygen Delivery Method Sepsis Recent Fever Within 48 Hours Sepsis New/Unexplained Change in Mental Status Sepsis Action Taken by Nursing 06/10/19 14:30 06/10/19 14:31 06/10/19 14:40 Temperature Temperature Source Pulse Rate 74 76 80 Pulse Rate from SpO2 Sensor 75 77 80 Respiratory Rate 21 14 18 Respiratory Effort / Characteristics Respiratory Depth Blood Pressure 125/73 Blood Pressure Mean 85 Pulse Oximetry 94 94 99 Oxygen Delivery Method Sepsis Recent Fever Within 48 Hours Sepsis New/Unexplained Change in Mental Status Sepsis Action Taken by Nursing 06/10/19 14:50 06/10/19 15:00 06/10/19 15:01 Temperature Temperature Source Pulse Rate 82 71 82 Pulse Rate from SpO2 Sensor 81 72 80 Respiratory Rate 24 Respiratory Effort / Characteristics Respiratory Depth Blood Pressure 127/74 Blood Pressure Mean 80 Pulse Oximetry 97 98 97 Oxygen Delivery Method Sepsis Recent Fever Within 48 Hours Sepsis New/Unexplained Change in Mental Status Sepsis Action Taken by Nursing 06/10/19 15:10 Temperature Temperature Source Pulse Rate 74 Pulse Rate from SpO2 Sensor 75 Respiratory Rate 24 Respiratory Effort / Characteristics Respiratory Depth Blood Pressure Blood Pressure Mean Pulse Oximetry 95 Oxygen Delivery Method Sepsis Recent Fever Within 48 Hours Sepsis New/Unexplained Change in Mental Status Sepsis Action Taken by Nursing GENERAL: Patient is sitting up in bed, disheveled, NAD, non-toxic. EYE EXAM: Scleral icterus. PERRL and EOM's grossly intact OROPHARYNX: no exudate, no erythema, lips, buccal mucosa, and tongue normal and mucous membranes are moist NECK: supple, no nuchal rigidity, no adenopathy, non-tender LUNGS: Clear to auscultation. Normal chest wall mechanics HEART: no murmurs, S1 normal and S2 normal ABDOMEN: Faint tenderness in periumbilical/RUQ. Abdomen soft, normo-active bowel sounds, no masses, no rebound or guarding. BACK: Back is symmetrical on inspection and there is no deformity, no midline tenderness, no CVA tenderness. SKIN: no rashes and no bruising UPPER EXTREMITIES: upper extremities are grossly normal. LOWER EXTREMITIES: No pitting edema. NEURO EXAM: Normal sensorium, cranial nerves II-XII grossly intact, normal speech, no gross weakness of arms, no gross weakness of legs. Course Course ED COURSE: Vital signs were reviewed and normal. The patients medical record was reviewed The above diagnostic studies were performed and reviewed. ED treatments and interventions as stated above. 1311: The patient was evaluated in room A3. A complete history and physical examination was performed. 1450: I discussed the patients case with Yohan FRIEND. She recommends to add on a toxicology and hepatitis panel. 1320: I discussed the patient's case with Veda Colón PA-C. Dr. Yates [facility] hospitalist will evaluate the patient for further manangement. 1530: Upon reevaluation, I discussed my findings with the patient and he understands and agrees with the treatment plan. Based on the patients age, coexisting illnesses, exam and lab findings the decision to treat as an inpatient was made. The patient remained stable while under my care. The patient will be evaluated for further management. Administered Medications Lactated Ringer's (Lr) 1,000 mls @ 200 mls/hr IV .Q5H FLOYD Stop: 07/10/19 16:44 Last Admin: 06/10/19 16:54 Dose: 200 mls/hr Documented by: [id number] Discontinued Medications Sodium Chloride (Nss 1000ml) 2,000 mls @ 999 mls/hr IV .Q2H1M ONE Stop: 06/10/19 15:30 Last Infusion: 06/10/19 15:50 Dose: 0 mls/hr Documented by: [id number] Admin: 06/10/19 13:43 Dose: 999 mls/hr Documented by: [id number] Acetylcysteine 15,000 mg/ (Dextrose) 275 mls @ 200 mls/hr IV ONCE ONE Stop: 06/10/19 16:18 Last Infusion: 06/10/19 16:55 Dose: 0 mls/hr Documented by: [id number] Admin: 06/10/19 15:20 Dose: 200 mls/hr Documented by: [id number] Ioversol (Optiray 320 100ml) 94 ml IV ONCE PRN PRN Reason: Interaction Checking Stop: 06/14/19 13:56 Last Admin: 06/10/19 13:58 Dose: 94 ml Documented by: [id number] Ketorolac Tromethamine (Toradol) 15 mg IV NOW ONE Stop: 06/10/19 13:31 Last Admin: 06/10/19 13:44 Dose: 15 mg Documented by: [id number] Ondansetron HCl (Zofran) 4 mg IV NOW STA Stop: 06/10/19 13:31 Last Admin: 06/10/19 13:43 Dose: 4 mg Documented by: [id number] Medical Decision Making Differential Diagnosis Differential diagnoses includes but is not limited to gastritis, peptic ulcer disease, GERD, gallbladder disease, pancreatitis, small bowel obstruction, acute coronary syndrome, pericarditis, ischemic bowel, irritable bowel disease, irritable bowel syndrome, appendicitis, diverticulitis, malignancy, hernia, urinary tract infection, torsion, perforation, trauma, infectious. Medical Records Attestation: I reviewed the patient's medical records. Home Medications Current Medication List: was personally reviewed by me Laboratory Data Attestation: I reviewed the patient's lab results. Result diagrams: 06/10/19 13:21 06/10/19 13:21 Lab Results 06/10/19 06/10/19 06/10/19 Range/Units 13:21 13:21 13:21 WBC 7.41 (4.8-10.8) K/uL RBC 5.32 (4.7-6.1) M/uL Hgb 16.2 (14.0-18.0) g/dL Hct 45.4 (42-52) % MCV 85.3 (80-100) fL MCH 30.5 (25-34) pg MCHC 35.7 (32-36) g/dL RDW Std Deviation 42.6 (36.4-46.3) fL RDW Coeff of Pierce 13.7 (11.5-14.5) % Plt Count 144 (130-400) K/uL MPV 9.7 (7.4-10.4) fL Immature Gran % (Auto) 0.3 % Neut % (Auto) 36.3 % Lymph % (Auto) 46.4 % [place] % (Auto) 8.1 % Eos % (Auto) 5.9 % Baso % (Auto) 3.0 % Immature Gran # (Auto) 0.02 (0.00-0.02) K/uL Neut # (Auto) 2.69 (1.4-6.5) K/uL Lymph # (Auto) 3.44 H (1.2-3.4) K/uL [place] # (Auto) 0.60 H (0.11-0.59) K/uL Eos # (Auto) 0.44 (0-0.5) K/uL Baso # (Auto) 0.22 H (0-0.2) K/uL PT 11.8 (9.0-12.0) Seconds INR 1.2 H (0.9-1.1) Sodium 136 (136-145) mmol/L Potassium 3.7 (3.5-5.1) mmol/L Chloride 104 (98-107) mmol/L Carbon Dioxide 27 (21-32) mmol/L Anion Gap 5.0 (3-11) BUN 9 (7-18) mg/dl Creatinine 0.82 (0.6-1.4) mg/dl Est Cr Clr Drug Dosing 152.7 ml/min Est GFR ( Amer) 126.4 Est GFR (Non-Af Amer) 109.1 BUN/Creatinine Ratio 10.4 (10-20) Glucose 163 H (70-99) mg/dl Calcium 8.9 (8.5-10.1) mg/dl Total Bilirubin 4.5 H (0.2-1) mg/dl AST 577 H (15-37) U/L ALT 1447 H (12-78) U/L Alkaline Phosphatase 219 H (45-117) U/L Total Protein 7.4 (6.4-8.2) gm/dl Albumin 3.1 L (3.4-5.0) gm/dl Globulin 4.3 H (2.5-4.0) gm/dl Albumin/Globulin Ratio 0.7 L (0.9-2) Lipase 65 L (73-393) U/L Urine Color Urine Appearance (Clear) Urine pH (4.5-7.5) Ur Specific [place] (1.000-1.030) Urine Protein (Negative) Urine Glucose (UA) (Negative) Urine Ketones (Negative) Urine Blood (Negative) Urine Nitrite (Negative) Urine Bilirubin (Negative) Urine Urobilinogen (Negative) Ur Leukocyte Esterase (Negative) Urine RBC (0-4) /hpf Urine WBC (0-5) /hpf Ur Epithelial Cells (0-5) /lpf Urine Bacteria (Negative) Hyaline Casts (0-5) /lpf Urine Mucus (None Prsent) Urine Sperm (None Prsent) Acetaminophen 06/10/19 06/10/19 Range/Units 13:21 13:35 WBC (4.8-10.8) K/uL RBC (4.7-6.1) M/uL Hgb (14.0-18.0) g/dL Hct (42-52) % MCV (80-100) fL MCH (25-34) pg MCHC (32-36) g/dL RDW Std Deviation (36.4-46.3) fL RDW Coeff of Pierce (11.5-14.5) % Plt Count (130-400) K/uL MPV (7.4-10.4) fL Immature Gran % (Auto) % Neut % (Auto) % Lymph % (Auto) % [place] % (Auto) % Eos % (Auto) % Baso % (Auto) % Immature Gran # (Auto) (0.00-0.02) K/uL Neut # (Auto) (1.4-6.5) K/uL Lymph # (Auto) (1.2-3.4) K/uL [place] # (Auto) (0.11-0.59) K/uL Eos # (Auto) (0-0.5) K/uL Baso # (Auto) (0-0.2) K/uL PT (9.0-12.0) Seconds INR (0.9-1.1) Sodium (136-145) mmol/L Potassium (3.5-5.1) mmol/L Chloride (98-107) mmol/L Carbon Dioxide (21-32) mmol/L Anion Gap (3-11) BUN (7-18) mg/dl Creatinine (0.6-1.4) mg/dl Est Cr Clr Drug Dosing ml/min Est GFR ( Amer) Est GFR (Non-Af Amer) BUN/Creatinine Ratio (10-20) Glucose (70-99) mg/dl Calcium (8.5-10.1) mg/dl Total Bilirubin (0.2-1) mg/dl AST (15-37) U/L ALT (12-78) U/L Alkaline Phosphatase (45-117) U/L Total Protein (6.4-8.2) gm/dl Albumin (3.4-5.0) gm/dl Globulin (2.5-4.0) gm/dl Albumin/Globulin Ratio (0.9-2) Lipase (73-393) U/L Urine Color Jaclyn Urine Appearance Clear (Clear) Urine pH 6.5 (4.5-7.5) Ur Specific [place] 1.020 (1.000-1.030) Urine Protein 1+ H (Negative) Urine Glucose (UA) Trace H (Negative) Urine Ketones Trace H (Negative) Urine Blood 3+ H (Negative) Urine Nitrite Positive A (Negative) Urine Bilirubin 3+ H (Negative) Urine Urobilinogen Positive H (Negative) Ur Leukocyte Esterase Trace H (Negative) Urine RBC 5-10 H (0-4) /hpf Urine WBC 5-10 H (0-5) /hpf Ur Epithelial Cells 5-10 H (0-5) /lpf Urine Bacteria 1+ H (Negative) Hyaline Casts 0-5 (0-5) /lpf Urine Mucus Present A (None Prsent) Urine Sperm Present A (None Prsent) Acetaminophen Cancelled Imaging Data Radiologist's Impression: Radiology results as stated below per my review and the radiologist's interpretation: ABDOMEN AND PELVIS CT WITH IV CONTRAST CT DOSE: 1010.85 mGycm HISTORY: Mid abdominal pain TECHNIQUE: Multiaxial CT images of the abdomen and pelvis were performed following the use of intravenous contrast. A dose lowering technique was utilized adhering to the principles of ALARA. COMPARISON STUDY: Abdomen and pelvis CT 08/01/2014. FINDINGS: Small focus of tree-in-bud nodular densities within the base of the right lower lobe. No pneumoperitoneum. No pneumatosis. No fractures within the visualized osseous structures. Mildly enlarged distal paraesophageal lymph node best seen on image 53. This has slightly increased in size. This measures 12 mm in short axis diameter. There is also periportal lymphadenopathy. There is mild inflammatory change surrounding the second and third portion of the duodenum which demonstrate associated wall thickening. Mild edema tracking along the right paracolic gutter. Mild inflammatory change at the pancreatic head and angela hepatis. The main portal vein is patent. There is a punctate stone within the left kidney. The right kidney enhances normally. No hydronephrosis. No hepatic masses. Prior cholecystectomy. Trace pelvic free fluid. The bladder is d ecompressed. No evidence for bowel obstruction. Normal appendix. Normal adrenal glands and spleen. IMPRESSION: 1. Bowel wall thickening involving the second and third portion of the duodenum with adjacent inflammatory change and edema tracking along the right paracolic gutter. Findings favor a duodenitis/peptic ulcer disease. A groove pancreatitis could also have a similar appearance. Recommend correlation with pancreatic enzymes. 2. Periportal and distal paraesophageal lymphadenopathy which could be reactive. Follow-up recommended to ensure resolution. 3. In addition, follow-up endoscopy is recommended for further evaluation of the duodenal abnormality. 4. Small cluster of tree-in-bud nodular opacities within the base of the right lower lobe. This favors inflammatory/infectious process. ACT 112: Negative or not required by law. Electronically signed by: Michael Grace M.D. 06/10/2019 2:27 PM Blood Pressure Blood Pressure Findings: Elevated blood pressure Blood Pressure Disposition: further management by hospitalist DELBERT Narrative Patient is a 43-year-old male who presents the ER for right upper quadrant abdominal pain. Upon presentation he does have some scleral icterus. He has minimal tenderness. IV was established blood work was obtained. Labs show no significant leukocytosis or anemia. INR is unremarkable. BMP with a significantly elevated ALT at 1400 and AST at 600. T bili was 5. Alk phos was elevated as well. Lipase was normal. UA was contaminated and he has no urinary symptoms/will not treat at this time. Alcohol was negative. Hepatitis panel was ordered. INR as discussed above. Tylenol was ordered and still pending up on admission. CT abdomen pelvis shows likely pancreatitis. Lipase was normal. Patient was given IV fluids and Zofran. Discussed with hospitalist as well as GI. Patient was given N-acetylcysteine bolus in case this is secondary to Tylenol although I favor unlikely has he notes he has only taken those 2 doses. Patient was updated and admitted to the hospital for further work-up. Impression & Plan Acute liver failure, Abdominal pain, Elevated bilirubin, Tylenol ingestion Discharge Plan Visit Data *Final* Discharge Date/Time: 06/10/19 16:13 Chief Complaint: GI Assessment Stated Complaint: BLOATED, HARD STOMACH, SWEATS ED Provider: Stan Israel Discharge Problem: Acute liver failure, Abdominal pain, Elevated bilirubin, Tylenol ingestion Patient Disposition: Admitted As Inpatient Discharge Instructions Interventions: ED Discharge Assessment Last Done: 06/10/19 16:13 Discharge Problem: Acute liver failure Qualifiers: Hepatic coma status: without hepatic coma Qualified Code(s): K72.00 - Acute and subacute hepatic failure without coma Abdominal pain Qualifiers: Abdominal location: unspecified location Qualified Code(s): R10.9 - Unspecified abdominal pain Tylenol ingestion Qualifiers: Encounter type: initial encounter Injury intent: undetermined intent Qualified Code(s): T39.1X4A - Poisoning by 4-Aminophenol derivatives, undetermined, initial encounter The scribe's documentation has been prepared under my direction and personally reviewed by me in its entirety. I confirm that the note above accurately reflects all work, treatment, procedures, and medical decision making performed by me.
[2019-06-10] MEDS ORDERED: ALUMINUM/MAGNESIUM/SIMETH (MAALOX MAX) 30 ML UDC PO PRN (18:04)
[2019-06-10] MEDS ORDERED: FAMOTIDINE 20MG IV PUSH 20 MG/5 ML SYR IV ONE (18:05)
[2019-06-10] MEDS: ALBUTEROL 0.083% NEBU SOLN 3 ML VIAL NEB SCH (18:24)
[2019-06-10 18:53] LABS: Amphetamines+Metham, Urine Pos (Neg); Barbiturates, Urine Neg (Neg); Benzodiazepine, Urine Neg (Neg); Cocaine, Urine Neg (Neg); MDMA (Ecstacy), Urine Neg (Neg); Methadone, Urine Neg (Neg); Opiate, Urine Neg (Neg); Phencyclidine, Urine Neg (Neg)
[2019-06-10] MEDS ORDERED: ALBUTEROL 0.083% NEBU SOLN 3 ML VIAL NEB PRN (19:43)
[2019-06-10] MEDS ORDERED: AcetylCYSTEINE 5,000 MG in DEXTROSE 5% 500 ML IV ONE (20:00)
[2019-06-10] MEDS: buprenorphine HCL 8 MG SUBL SL SCH (20:19)
[2019-06-10] MEDS ORDERED: buprenorphine HCL 8 MG SUBL SL SCH (21:00)
[2019-06-11] MEDS ORDERED: AcetylCYSTEINE 10,000 MG in DEXTROSE 5% 1,000 ML IV ONE (00:12)
[2019-06-11] MEDS ORDERED: KETOROLAC TROMETHAMINE 15 MG/ML VIAL IV ONE ×2 (00:15→09:06)
[2019-06-11] MEDS: LACTATED RINGER'S 1,000 ML IV SCH ×6 (01:37→22:47)
[2019-06-11] MEDS: ALBUTEROL 0.083% NEBU SOLN 3 ML VIAL NEB SCH ×4 (02:58→20:17)
[2019-06-11 06:24] LABS: Hematocrit (blood only) 40.1 % (42-52); Hemoglobin 13.7 g/dL (14.0-18.0); Mean Corpuscular Hemoglobin 29.5 pg (25-34); Mean Corpuscular Hgb Conc 34.2 g/dL (32-36); Mean Corpuscular Volume 86.2 fL (80-100); Mean Platelet Volume 9.5 fL (7.4-10.4); Platelet Count 114 K/uL (130-400); RDW Coefficient of Variation 14.1 % (11.5-14.5); RDW Standard Deviation 44.1 fL (36.4-46.3); Red Blood Count 4.65 M/uL (4.7-6.1); White Blood Count 8.87 K/uL (4.8-10.8)
[2019-06-11 06:38] LABS: INR 1.2 (0.9-1.1); Prothrombin Time 11.8 Seconds (9.0-12.0)
[2019-06-11 07:01] LABS: Albumin Globulin Ratio 0.6 (0.9-2); Albumin Level 2.3 gm/dl (3.4-5.0); BUN Creatinine Ratio 9.6 (10-20); Bilirubin Direct 2.8 mg/dl (0-0.2); Bilirubin,Total 3.5 mg/dl (0.2-1); Calcium 8.2 mg/dl (8.5-10.1); Creatinine Clr Calc Pharmacy 143.7 ml/min; Est GFR (African American) 123.4; Est GFR (Non-African American) 106.5; Globulin 3.7 gm/dl (2.5-4.0); Potassium 4.5 mmol/L (3.5-5.1)
[2019-06-11 07:49] LABS: Estimated Average Glucose 123 mg/dl; Hemoglobin A1C 5.9 % (4.5-5.6)
[2019-06-11] MEDS: buprenorphine HCL 8 MG SUBL SL SCH ×2 (08:00→20:29)
[2019-06-11] MEDS ORDERED: INDOMETHACIN 50 MG SUPP PR ONE ×2 (08:53→17:00)
--- NOTE | 2019-06-11 11:32 | Gastroenterology Progress Note ---
Date of Service June 11, 2019 Assessment & Plan (1) LFT elevation: (2) RUQ abdominal pain: (3) History of drug abuse: Pt is a 43 y/o male who presented RUQ abd pain, dark urine x 4 days, LFTs noted to be up, CT abd/pelvis showed signs of possible duodenitis/PUD vs ? groove pancreatitis though Lipase was normal. He is s/p cholecystectomy. Suspect likely has choledocholithiasis - Keep NPO for EUS/ERCP procedure today in OR - LR @ 200mL/hr - Stop Mucomyst IV - F/U acute hepatitis panel, autoimmune liver dz serologies and urine toxicology & ETOH levels. HCV Ab +, will f/u on viral load and if present will help set up f/u appt in GI clinic to discuss treatment options/candidacy if pt is interested. - GI will give further recs after EUS/ERCP completed Admission and Anticipated Discharge Date Admission Date: June 10, 2019 Supervising Physician Co-Signing Physician Notes I have discussed the patient's management with the advanced practitioner. Please refer to the nurse practitioner's note for the documented findings and plan of care. EUS/ERCP today Subjective Pt c/o migraine headaches. Abd pain improved. Denies any N/V, CP, SOB, fever, chills. LFTs trending down, Lipase remains normal HCV antibody +, viral load pending. Pt admits known hx of HCV infection, treatment naive Urine drug screen + for amphetamines, he admits to be "exposed" to meth about 1 week ago. Review of Systems Review of Systems: All systems reviewed & are unremarkable except as noted in HPI & below Physical Exam Constitutional: WD/WN, vitals as above well groomed, cooperative and comfortable Eyes: + scleral abnormality (mild icterus), PERRL and EOM intact bilaterally ENMT: external ear and nose normal, oropharynx normal Respiratory: normal respiratory effort, lungs clear to auscultation Cardiovascular: RRR, no murmur, no edema Gastrointestinal (Abdomen): Inspection/Auscultation: normal bowel sounds Percussion/Palpation: + abdomen tender (RUQ ) and abdomen soft Skin: no rashes, warm and dry no jaundice Psychiatric: A+Ox3, euthymic affect Lymphatic: no lymphedema Results & Data ([facility]) Vital Signs (Past 12 Hours) Vital Signs Temp Pulse Pulse Resp BP BP Pulse Ox 02/25/20 11:16 36.7 C 77 18 115/71 96 06/11/19 07:29 37.1 C 75 16 109/64 94 06/11/19 07:15 80 19 98 06/11/19 07:04 76 06/11/19 04:28 36.8 C 78 20 122/76 95 06/11/19 00:00 79
--- NOTE | 2019-06-11 15:25 | Anesthesiology Consultation ---
Date of Service June 11, 2019 Assessment & Plan (1) Encounter for pre-operative examination: Chart Review Chart Review: Acceptable Risk for Surgery History Surgery Operation Date: 06/11/19 09:10 Proposed Procedures p Endoscopic Ultrasonography Upper, - Ganga Hilliard MD s Endoscopic Retrograde Cholangiopancreatogram - Ganga Hilliard MD Height/Weight Height: 5 ft 11 in Weight: 116.7 kg Allergies Allergy/AdvReac Type Severity Reaction Status Date / Time acetaminophen Allergy Unknown redness Verified 06/10/19 14:28 all over body Medications Home Medications Medication Instructions Recorded Confirmed Last Taken acetaminophen [Tylenol Extra 500 mg PO Q6H PRN 06/10/19 06/10/19 06/10/19 07:00 Strength] 2000 mg albuterol sulfate 1 - 2 puff INHALATION Q4H PRN 06/10/19 06/10/19 06/10/19 buprenorphine HCl 8 mg SUBLINGUAL BID 06/10/19 06/10/19 06/10/19 gabapentin 400 mg PO TID 06/10/19 06/10/19 06/08/19 Active Medications Generic Name Dose Route Start Last Admin Trade Name Freq PRN Reason Stop Dose Admin Al Hydrox/Mg Hydrox/Simethicone 15 ml 06/10/19 18:04 06/10/19 18:30 Maalox Max PO 07/10/19 18:03 15 ml Q6H PRN Administration Indigestion Albuterol 2.5 mg 06/10/19 19:00 06/11/19 13:29 Ventolin 0.083% 2.5mg/3ml NEB 07/10/19 18:59 Not Given Q6R FLOYD Buprenorphine HCl 8 mg 06/10/19 20:00 06/11/19 08:00 Subutex SL 07/10/19 19:59 Not Given BID@08,20 FLOYD Lactated Ringer's 1,000 mls @ 200 mls/hr 06/10/19 16:45 06/11/19 11:28 Lr IV 07/10/19 16:44 200 mls/hr .Q5H FLOYD Administration Acetylcysteine 10,000 mg/ 1,050 mls @ 65.625 mls/hr 06/11/19 00:12 06/11/19 00:38 Dextrose IV 06/11/19 16:11 65.6 mls/hr ONCE ONE Administration NPO Date Last Intake of Fluids: 06/10/19 Date Last Intake of Solids: 06/10/19 Past Medical History Medical History Asthma Biliary colic (Acute) Chronic back pain History of drug abuse Narcotic overdose (Inactive) Osteoarthritis Reactive airway disease (Inactive) Tobacco use Past Family History Family History Other Dementia Past Surgical History Surgical History History of cholecystectomy Social History Smoking Status: Current every day smoker tobacco type: cigarettes Smoking cigarettes per day: 1 PPD Do You Dip or Chew Tobacco: No Hx Alcohol Use: No Hx Substance Use: Yes substance use type: prescription drug Substance Use Type Other:: subutex twice daily prescribed Last Used Substance: Hours (ago) Physical Exam Vital Signs Last Vital Signs Temp 36.7 C 06/11/19 11:16 Pulse 77 06/11/19 11:16 Resp 18 06/11/19 11:16 BP 115/71 06/11/19 11:16 Pulse Ox 96 06/11/19 11:16 Testing Laboratory Results 06/11/19 05:57 06/11/19 05:57 PT 11.8 Seconds (9.0-12.0) 06/11/19 05:57 INR 1.2 (0.9-1.1) H 06/11/19 05:57 Hemoglobin A1c 5.9 % (4.5-5.6) H 06/11/19 05:57 Urine Color Jaclyn 06/10/19 13:35 Urine Appearance Clear (Clear) 06/10/19 13:35 Urine pH 6.5 (4.5-7.5) 06/10/19 13:35 Ur Specific [place] 1.020 (1.000-1.030) 06/10/19 13:35 Urine Protein 1+ (Negative) H 06/10/19 13:35 Urine Glucose (UA) Trace (Negative) H 06/10/19 13:35 Urine Ketones Trace (Negative) H 06/10/19 13:35 Urine Nitrite Positive (Negative) A 06/10/19 13:35 Ur Leukocyte Esterase Trace (Negative) H 06/10/19 13:35 Urine RBC 5-10 /hpf (0-4) H 06/10/19 13:35 Urine WBC 5-10 /hpf (0-5) H 06/10/19 13:35 Ur Epithelial Cells 5-10 /lpf (0-5) H 06/10/19 13:35 06/10/19 13:35 Urine Culture - Preliminary Urine,Clean Catch No growth - Less than 1,000 colonies/mL, Final report to follow.
--- NOTE | 2019-06-11 16:52 | Hospitalist Progress Note ---
Date of Service June 11, 2019 Assessment & Plan (1) RUQ abdominal pain: (2) LFT elevation: Pt is 43 y/o M with PMH opioid, methamphetamine drug abuse, currently on buprenorphine, asthma, tobacco use presented to ER with c/o abdominal pain today and dark yellow urine, fatigue and sweats x 4 days. Denies fever. Took 2 doses of 2GM Tylenol last night and this morning. CT ABD/PELVIS: 1. Bowel wall thickening involving the second and third portion of the duodenum with adjacent inflammatory change and edema tracking along the right paracolic gutter. Findings favor a duodenitis/peptic ulcer disease. A groove pancreatitis could also have a similar appearance. Recommend correlation with pancreatic enzymes. 2. Periportal and distal paraesophageal lymphadenopathy which could be reactive. Follow-up recommended to ensure resolution. 3. In addition, follow-up endoscopy is recommended for further evaluation of the duodenal abnormality. 4. Small cluster of tree-in-bud nodular opacities within the base of the right lower lobe. This favors inflammatory/infectious process. DDX: pancreatitis, choledocholithiasis, acute liver injury, hepatitis, cholangitis Received Mucomyst in the emergency room and that has been discontinued this morning LFTs show slight improvement Hepatitis C is positive preliminary and awaiting HCV RNA measurement,Hepatitis A IgG is pending and hepatitis B is negative KOBI, antimitochondrial antibody and anti-smooth muscle antibodies are pending Appreciate GI input and recommendation Will have EUS/ERCP this afternoon (3) Asthma: -Hold home albuterol inhaler -Albuterol nebs scheduled as has scattered wheezing -Remains controlled without any symptoms (4) History of drug abuse: History opioid, methamphetamine use. Reports last used 11/2018 Currently on buprenorphine, Follows with [facility] -Will continue buprenorphine for now -Has remote history of IV drug abuse (5) Chronic back pain: Does not use gabapentin regularly -Hold gabapentin currently (6) Tobacco use: -Smoking cessation encouraged -Denies nicotine patch at this time DVT Prophylaxis -Low risk - Ambulate Pt does not follows with PCP for routine care. Reports previously followed with Dr Garcias Admission and Anticipated Discharge Date Admission Date: June 10, 2019 Subjective 06/11/2019 Patient is seen and examined in medical telemetry unit He is a 43-year-old male with significant past medical history of controlled asthma, chronic back pain and history of drug abuse was admitted yesterday with right upper quadrant abdominal pain with abnormal LFTs Still complains to have epigastric/right upper quadrant pain and discomfort Denies any nausea no vomiting Awaiting ERCP and EUS this afternoon Review of Systems Review of Systems: All systems reviewed and are unremarkable except as noted. Gastrointestinal: + abdominal pain and + bloating; no nausea and no vomiting Physical Exam Physical Exam: Lying in bed with some discomfort in the abdomen Constitutional: well developed and well nourished; no acute distress and not ill appearing Eyes: PERRL, conjunctivae normal, anicteric sclerae ENMT: external ear and nose normal, oropharynx normal Neck: trachea midline, no thyromegaly Respiratory: normal respiratory effort; no respiratory distress Auscultation: lungs clear to auscultation bilaterally Cardiovascular: Rate/Rhythm: regular rate and regular rhythm Heart Sounds: no murmur Gastrointestinal (Abdomen): Inspection/Auscultation: abdomen normal to inspect ion; abdomen not distended Percussion/Palpation: + abdomen tender (Epigastrium and right upper quadrant) and abdomen soft; no guarding and abdomen not rigid Musculoskeletal: No acute arthritis involving any joints Neurologic: Alert, awake and oriented x3. No focal sensory and motor deficit appreciated Lymphatic: no cervical or axillary lymphadenopathy Results & Data ([facility]) Vital Signs (Past 12 Hours) Vital Signs Temp Pulse Pulse Resp BP BP Pulse Ox 06/11/19 15:39 37.1 C 60 20 114/74 96 06/11/19 11:16 36.7 C 77 18 115/71 96 06/11/19 07:29 37.1 C 75 16 109/64 94 06/11/19 07:15 80 19 98 06/11/19 07:04 76 Laboratory Results Short CBC 06/11/19 Range/Units 05:57 WBC 8.87 (4.8-10.8) K/uL Hgb 13.7 L (14.0-18.0) g/dL Hct 40.1 L (42-52) % Plt Count 114 L (130-400) K/uL BMP 06/11/19 05:57 Sodium 139 Potassium 4.5 D Chloride 105 Carbon Dioxide 30 BUN 8 Creatinine 0.87 Glucose 99 Calcium 8.2 L Liver Function 06/11/19 Range/Units 05:57 Total Bilirubin 3.5 H (0.2-1) mg/dl Direct Bilirubin 2.8 H (0-0.2) mg/dl AST 262 H (15-37) U/L ALT 977 H (12-78) U/L Alkaline Phosphatase 181 H (45-117) U/L Albumin 2.3 L (3.4-5.0) gm/dl Medications Administered Current Inpatient Medications Al Hydrox/Mg Hydrox/Simethicone (Maalox Max) 15 ml PO Q6H PRN PRN Reason: Indigestion Stop: 07/10/19 18:03 Last Admin: 06/10/19 18:30 Dose: 15 ml Documented by: Albuterol (Ventolin 0.083% 2.5mg/3ml) 2.5 mg NEB Q6R FLOYD Stop: 07/10/19 18:59 Last Admin: 06/11/19 13:29 Dose: Not Given Documented by: Albuterol (Ventolin 0.083% 2.5mg/3ml) 2.5 mg NEB Q6H PRN PRN Reason: Wheezing Stop: 07/10/19 19:42 Atropine Sulfate (Atropine Sulfate) 0.5 mg IV Q1M PRN PRN Reason: PACU Use-HR<40 &/or Bradycardi Stop: 06/11/19 21:55 Buprenorphine HCl (Subutex) 8 mg SL BID@20 [facility] Stop: 07/10/19 19:59 Last Admin: 06/11/19 08:00 Dose: Not Given Documented by: Fentanyl Citrate (Fentanyl Citrate) 25 mcg IV Q5M PRN PRN Reason: PACU Use Only-Pain Stop: 06/11/19 21:55 Lactated Ringer's (Lr) 1,000 mls @ 200 mls/hr IV .Q5H FLOYD Stop: 07/10/19 16:44 Last Admin: 06/11/19 16:20 Dose: 200 mls/hr Documented by: Indomethacin (Indocin) 100 mg VT ONE ONE Stop: 06/11/19 17:01 Ketorolac Tromethamine (Toradol) 30 mg IV ONCE PRN PRN Reason: PACU Use Only-Pain Stop: 06/11/19 21:55 Labetalol HCl (Normodyne) 5 mg IV Q5M PRN PRN Reason: PACU Use-SBP>160 or DBP>100 Stop: 06/11/19 21:56 Ondansetron HCl (Zofran) 4 mg IV Q6H PRN PRN Reason: Nausea Stop: 07/10/19 16:44 Ondansetron HCl (Zofran) 4 mg IV ONCE PRN PRN Reason: PACU Use Only-Nausea/Vomiting Stop: 06/11/19 21:56
[2019-06-11] MEDS ORDERED: PROPOFOL IV EMULSION 10 MG/ML 20 ML VIAL IV ONE (16:54)
[2019-06-11] MEDS ORDERED: ONDANSETRON INJ 2 MG/ML 2 ML VIAL ONE ×2 (16:54→17:35)
[2019-06-11] MEDS ORDERED: LIDOCAINE HCL 2% 2 ML VIAL/AMP(20MG/ML) INFIL ONE (16:54)
[2019-06-11] MEDS ORDERED: fentaNYL citrate 100 MCG/2 ML VIAL IV PRN (16:55)
[2019-06-11] MEDS ORDERED: MIDAZOLAM HCL 1 MG/ML 2ML VIAL ONE ×2 (16:55)
[2019-06-11] MEDS ORDERED: KETOROLAC 30 MG/ML VIAL IV PRN (16:55)
[2019-06-11] MEDS ORDERED: LABETALOL HCL IV 5 MG/ML 20ML IV PRN (16:55)
[2019-06-11] MEDS ORDERED: ATROPINE SULFATE 0.1 MG/ML 10ML SYR IV PRN (16:55)
[2019-06-11] MEDS ORDERED: ONDANSETRON INJ 2 MG/ML 2 ML VIAL IV PRN (16:55)
[2019-06-11] MEDS ORDERED: PIPERACILLIN/TAZOBACTAM 3.375 GM in DEXTROSE 5% 100 ML IV STA (17:22)
[2019-06-11] MEDS ORDERED: PIPERACILL/TAZOBAC CONSULT ACTIVE PRN (17:22)
[2019-06-11] MEDS ORDERED: ROCURONIUM BROMIDE 10 MG/ML 5 ML VIAL ONE (17:35)
[2019-06-11] MEDS ORDERED: GLYCOPYRROLATE 0.2 MG/ML VIAL ONE (17:35)
[2019-06-11] MEDS ORDERED: NEOSTIGMINE METHYLSULFATE 5 MG/5 ML SYR ONE (17:35)
[2019-06-11] MEDS ORDERED: DEXAMETHASONE SOD INJ 4 MG/ML VIAL ONE (17:35)
[2019-06-11] MEDS ORDERED: ALBUTEROL HFA INHALER 8.5 GM ONE (17:57)
--- NOTE | 2019-06-11 18:48 | Operative Report ---
Post Operative Report Pre & Post Diagnosis Operation Date: 06/11/19 09:10 Pre-Op Diagnosis: ELEVATED Liver Function Tests Post-Op Diagnosis: ELEVATED Liver Function Tests I identified the patient and participated in the time-out.: Yes Procedure Operation Date: 06/11/19 09:10 Actual Procedures p Endoscopic Ultrasonography Upper,(Not Applicable) - Ganga Hilliard MD s Endoscopic Retrograde Cholangiopancreatogram(Not Applicable) - Ganga Hilliard MD Surgeon Ganga Hilliard MD Network Manager None Estimated Blood Loss 0 Findings See Below (SOD stenosis, s/p sphincterotomy and stent placement) Specimens FNA of LN Description of Procedure ERCP/EUS I attest to the content of the Intraoperative Record and any orders documented therein. Any exceptions are noted below.
--- NOTE | 2019-06-11 19:05 | GI REPORT ---
Patient Name: Bladimir Coronado Procedure Date: 06/11/2019 5:01 PM Date of : 1975 Admit Type: Inpatient Age: 43 Gender: Male Attending MD: Ganga Hilliard MD Procedure: Upper GI endoscopy Providers: Ganga Hilliard MD Referring MD: Murphy John Indications: Epigastric abdominal pain Medicines: General Anesthesia Complications: No immediate complications. Estimated Blood Loss: Estimated blood loss: none. Procedure: Pre-Anesthesia Assessment: - Prior to the procedure, a History and Physical was performed, and patient medications, allergies and sensitivities were reviewed. The patient's tolerance of previous anesthesia was reviewed. - The risks and benefits of the procedure and the sedation options and risks were discussed with the patient. All questions were answered and informed consent was obtained. - Patient identification and proposed procedure were verified prior to the procedure by the physician and the nurse. The procedure was verified in the procedure room. - Pre-procedure physical examination revealed no contraindications to sedation. After obtaining informed consent, the endoscope was passed under direct vision. Throughout the procedure, the patient's blood pressure, pulse, and oxygen saturations were monitored continuously. The Endoscope was introduced through the mouth, and advanced to the second part of duodenum. The upper GI endoscopy was accomplished without difficulty. The patient tolerated the procedure well. Findings: [place]-colored mucosa was present. The maximum longitudinal extent of these esophageal mucosal changes was 3 cm in length. Biopsies were taken with a cold forceps for histology. Verification of patient identification for the specimen was done by the physician and nurse using the patient's name and date. The entire examined stomach was normal. The duodenal bulb and second portion of the duodenum were normal. 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 Biopsied. - Normal stomach. - Normal duodenal bulb and second portion of the duodenum. Recommendation: - Await pathology results. - Follow an antireflux regimen. - Use a proton pump inhibitor PO daily. - Perform an upper endoscopic ultrasound (UEUS). Ganga Hilliard MD 06/11/2019 7:05:03 PM This report has been signed electronically. Note Initiated On: 06/11/2019 5:01 PM Number of Addenda: 0 I attest to the content of the Intraoperative Record and orders documented therein, exceptions below {[id number]}
--- NOTE | 2019-06-11 19:05 | Fluoroscopy Report ---
FL ERCP biliary ductal CLINICAL HISTORY: EXPLORE DUCTS COMPARISON STUDY: Intraoperative cholangiogram dated 06/05/2014 FLUOROSCOPY TIME: 55 seconds. NUMBER OF FLUOROSCOPIC IMAGES: 10 FINDINGS: The common bile duct was cannulated and retrograde fashion. No filling defects are visualiz ed. A sphincterotomy appears to have been performed. A metallic biliary enteric stent was placed. IMPRESSION: Intraoperative fluoroscopic spot images obtained during placement of a metallic biliary enteric stent ACT 112: Negative or not required by law. Electronically signed by: Gareth Pope M.D. 06/11/2019 7:03 PM
--- NOTE | 2019-06-11 19:16 | GI REPORT ---
Patient Name: Bladimir Coronado Procedure Date: 06/11/2019 5:17 PM Date of : 1975 Admit Type: Inpatient Age: 43 Gender: Male Attending MD: Ganga Hilliard MD Procedure: Upper EUS Providers: Ganga Hilliard MD Referring MD: Murphy John Indications: Abnormal abdominal/pelvic CT scan, Elevated liver enzymes Medicines: General Anesthesia Complications: No immediate complications. Estimated Blood Loss: Estimated blood loss: none. Procedure: Pre-Anesthesia Assessment: - Prior to the procedure, a History and Physical was performed, and patient medications, allergies and sensitivities were reviewed. The patient's tolerance of previous anesthesia was reviewed. - The risks and benefits of the procedure and the sedation options and risks were discussed with the patient. All questions were answered and informed consent was obtained. - Patient identification and proposed procedure were verified prior to the procedure by the physician and the nurse. The procedure was verified in the procedure room. - Pre-procedure physical examination revealed no contraindications to sedation. After obtaining informed consent, the endoscope was passed under direct vision. Throughout the procedure, the patient's blood pressure, pulse, and oxygen saturations were monitored continuously. The Endosonoscope was introduced through the mouth, and advanced to the second part of duodenum. The upper EUS was accomplished without difficulty. The patient tolerated the procedure well. Findings: ENDOSONOGRAPHIC FINDING: : There was no sign of significant endosonographic abnormality in the ampulla. No masses were identified. Moderate hyperechoic material consistent with sludge was visualized endosonographically in the common bile duct. The CBD diameter measured 4 mm. Evidence of a previous cholecystectomy was identified endosonographically. There was no sign of significant endosonographic abnormality in the entire pancreas. The pancreatic duct measured up to 2 mm in diameter. Many enlarged lymph nodes were visualized in the angela hepatis region. The largest measured 12 mm in maximal cross-sectional diameter. The nodes were round, hypoechoic and had well defined margins. Fine needle aspiration for cytology was performed. Color Doppler imaging was utilized prior to needle puncture to confirm a lack of significant vascular structures within the needle path. Two passes were made with the 25 gauge needle using a transduodenal approach. A stylet was used. A preliminary cytologic examination was not performed. Verification of patient identification for the specimen was done by the physician and nurse using the patient's name and date. There was no sign of significant endosonographic abnormality in the left lobe of the liver. There was no sign of significant endosonographic abnormality in the visualized portion of the left adrenal gland. There was no sign of significant endosonographic abnormality involving the celiac trunk. Impression: - There was no sign of significant pathology in the ampulla. - Hyperechoic material consistent with sludge was visualized endosonographically in the common bile duct. - Evidence of a cholecystectomy. - There was no sign of significant pathology in the entire pancreas. - Many enlarged lymph nodes were visualized in the angela hepatis region. Tissue was obtained from this exam, and results are pending. However, the endosonographic appearance is benign inflammatory changes. Fine needle aspiration performed. - There was no evidence of significant pathology in the left lobe of the liver. - Endosonographic images of the left adrenal gland were unremarkable. - The celiac trunk was endosonographically normal. Recommendation: - Perform an ERCP today. - Await cytology results. Ganga Hilliard MD 06/11/2019 7:15:33 PM This report has been signed electronically. Note Initiated On: 06/11/2019 5:17 PM Number of Addenda: 0 I attest to the content of the Intraoperative Record and orders documented therein, exceptions below {[id number]}
--- NOTE | 2019-06-11 19:19 | Anesthesiology Progress Note ---
Date of Service June 11, 2019 Anesthesia Post Procedure Vital Signs Vital Signs: Temp Pulse Pulse Pulse Resp BP BP 06/11/19 19:15 58 L 18 119/74 06/11/19 19:05 64 21 119/74 06/11/19 18:56 36.2 C L 66 20 122/74 06/11/19 16:59 36.7 C 63 20 125/83 06/11/19 15:39 37.1 C 60 20 114/74 06/11/19 11:16 36.7 C 77 18 115/71 06/11/19 07:29 37.1 C 75 16 109/64 06/11/19 07:15 80 19 06/11/19 07:04 76 06/11/19 04:28 36.8 C 78 20 122/76 06/11/19 00:00 79 06/10/19 23:11 36.8 C 77 20 127/74 Pulse Ox 06/11/19 19:15 94 06/11/19 19:05 95 06/11/19 18:56 98 06/11/19 16:59 98 06/11/19 15:39 96 06/11/19 11:16 96 06/11/19 07:29 94 06/11/19 07:15 98 06/11/19 07:04 06/11/19 04:28 95 06/11/19 00:00 06/10/19 23:11 97 Pain Intensity Right Abdomen: Pain Intensity: 6 Transfer of Care Handoff Completed per policy Notes Mental Status: alert / awake / arousable and participated in evaluation Patient Amnestic to Procedure: Yes Nausea / Vomiting: adequately controlled Pain: adequately controlled Airway Patency, RR, SpO2: stable & adequate BP & HR: stable & adequate Hydration State: stable & adequate Anesthetic Complications: no major complications apparent and Pt Satisfied with anesthetic care
--- NOTE | 2019-06-11 19:24 | GI REPORT ---
Patient Name: Bladimir Coronado Procedure Date: 06/11/2019 5:18 PM Date of : 1975 Admit Type: Inpatient Age: 43 Gender: Male Attending MD: Ganga Hilliard MD Procedure: ERCP Providers: Ganga Hilliard MD Referring MD: Murphy John Indications: Abnormal endoscopic ultrasound of the biliary system, Elevated liver enzymes Medicines: General Anesthesia Complications: No immediate complications. Estimated Blood Loss: Estimated blood loss: none. Procedure: Pre-Anesthesia Assessment: - Prior to the procedure, a History and Physical was performed, and patient medications, allergies and sensitivities were reviewed. The patient's tolerance of previous anesthesia was reviewed. - The risks and benefits of the procedure and the sedation options and risks were discussed with the patient. All questions were answered and informed consent was obtained. - Patient identification and proposed procedure were verified prior to the procedure by the physician and the nurse. The procedure was verified in the procedure room. - Pre-procedure physical examination revealed no contraindications to sedation. After obtaining informed consent, the scope was passed under direct vision. Throughout the procedure, the patient's blood pressure, pulse, and oxygen saturations were monitored continuously. The Scope was introduced through the mouth, and advanced to the duodenum and used to inject contrast into the bile duct. The ERCP was accomplished without difficulty. The patient tolerated the procedure well. Findings: A ultrasound specialist film of the abdomen was obtained. Surgical clips, consistent with a previous cholecystectomy, were seen in the area of the right upper quadrant of the abdomen. The esophagus was successfully intubated under direct vision. The scope was advanced to a normal major papilla in the descending duodenum without detailed examination of the pharynx, larynx and associated structures, and upper GI tract. The upper GI tract was grossly normal. The major papilla was edematous and appeared stenosed. Despite multiple attempts, biliary ductal cannulation could not be achieved with sphincterotome due to papillary stenosis. A biliary pre-cut sphincterotomy was made with a monofilament needle knife using a freehand technique using ERBE electrocautery. There was no post-sphincterotomy bleeding. A 0.035 inch angled standard wire was passed into the biliary tree. The Fusion OMNI sphincterotome was passed over the guidewire and the bile duct was then deeply cannulated. Contrast was injected. I personally interpreted the bile duct images. Ductal flow of contrast was adequate. Image quality was adequate. Contrast extended to the main bile duct. Opacification of the main bile duct and left and right hepatic ducts and all intrahepatic branches was successful. The maximum diameter of the ducts was 7 mm. The biliary orifice was stenotic. This appeared benign. The biliary sphincterotomy was extended with a monofilament traction (standard) sphincterotome using ERBE electrocautery. There was no post-sphincterotomy bleeding. The biliary tree was swept with a 12 mm balloon starting at the bifurcation. Sludge was swept from the duct. One 8 mm by 6 cm covered metal biliary stent was placed into the common bile duct for remodeling. Bile flowed through the stent. The stent was in good position. Indomethacin 100 mg was given via suppository to decrease the risk of post-ERCP pancreatitis (PEP). PD was not cannulated. Impression: - The major papilla appeared edematous and stenotic. 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 - The biliary tree was swept and sludge was found. - One covered metal biliary stent was placed into the common bile duct. Recommendation: - [facility] patient [facility] for [facility] care. - Repeat ERCP in 2 months to remove stent. - Repeat LFTs tomorrow. - Recall GI if needed. Ganga Hilliard MD 06/11/2019 7:23:26 PM This report has been signed electronically. Note Initiated On: 06/11/2019 5:18 PM Number of Addenda: 0 I attest to the content of the Intraoperative Record and orders documented therein, exceptions below {[id number]}
[2019-06-11] MEDS ORDERED: GLUCAGON FOR INJ 1 MG VIAL ONE (20:04)
[2019-06-12] MEDS: ALBUTEROL 0.083% NEBU SOLN 3 ML VIAL NEB SCH ×3 (01:07→13:15)
[2019-06-12] MEDS: LACTATED RINGER'S 1,000 ML IV SCH ×3 (04:21→19:25)
[2019-06-12] MEDS ORDERED: KETOROLAC TROMETHAMINE 15 MG/ML VIAL IV ONE (04:41)
[2019-06-12 05:53] LABS: Basophils # (auto) 0.02 K/uL (0-0.2); Basophils % (auto) 0.2 %; Eosinophils # (auto) 0.01 K/uL (0-0.5); Eosinophils % (auto) 0.1 %; Hematocrit (blood only) 39.8 % (42-52); Hemoglobin 13.8 g/dL (14.0-18.0); Immature Granulocytes # (auto) 0.02 K/uL (0.00-0.02); Immature Granulocytes % (auto) 0.2 %; Lymphocytes # (auto) 4.56 K/uL (1.2-3.4); Lymphocytes % (auto) 48.1 %; Mean Corpuscular Hemoglobin 29.7 pg (25-34); Mean Corpuscular Hgb Conc 34.7 g/dL (32-36); Mean Corpuscular Volume 85.8 fL (80-100); Mean Platelet Volume 9.7 fL (7.4-10.4); Monocytes # (auto) 0.23 K/uL (0.11-0.59); Monocytes % (auto) 2.4 %; Neutrophils # (auto) 4.64 K/uL (1.4-6.5); Platelet Count 144 K/uL (130-400); RDW Coefficient of Variation 13.9 % (11.5-14.5); RDW Standard Deviation 43.3 fL (36.4-46.3); Red Blood Count 4.64 M/uL (4.7-6.1); White Blood Count 9.48 K/uL (4.8-10.8)
[2019-06-12 06:28] LABS: Albumin Level 2.6 gm/dl (3.4-5.0); BUN Creatinine Ratio 15.4 (10-20); Calcium 8.5 mg/dl (8.5-10.1); Creatinine Clr Calc Pharmacy 158.3 ml/min; Est GFR (African American) 128.4; Est GFR (Non-African American) 110.8; Potassium 4.9 mmol/L (3.5-5.1)
[2019-06-12 06:31] LABS: Albumin Globulin Ratio 0.7 (0.9-2); Bilirubin,Total 3.1 mg/dl (0.2-1); Globulin 3.6 gm/dl (2.5-4.0); Total Protein 6.2 gm/dl (6.4-8.2)
--- NOTE | 2019-06-12 07:33 | Hospitalist Progress Note ---
Date of Service June 12, 2019 Assessment & Plan (1) RUQ abdominal pain: (2) LFT elevation: Pt is 43 y/o M with PMH opioid, methamphetamine drug abuse, currently on buprenorphine, asthma, tobacco use presented to ER with c/o abdominal pain, fatigue and sweats x 4 days. Denies fever. Took 2 doses of 2GM Tylenol at night and in the morning prior to admission. CT ABD/PELVIS: 1. Bowel wall thickening involving the second and third portion of the duodenum with adjacent inflammatory change and edema tracking along the right paracolic gutter. Findings favor a duodenitis/peptic ulcer disease. A groove pancreatitis could also have a similar appearance. Recommend correlation with pancreatic enzymes. 2. Periportal and distal paraesophageal lymphadenopathy which could be reactive. Follow-up recommended to ensure resolution. 3. In addition, follow-up endoscopy is recommended for further evaluation of the duodenal abnormality. 4. Small cluster of tree-in-bud nodular opacities within the base of the right lower lobe. This favors inflammatory/infectious process. DDX considered on admission : pancreatitis, choledocholithiasis, acute liver injury, hepatitis, cholangitis - lipase not elevated - hx of cholecystectomy GI consulted - EUS/ ERCP yesterday (06/11) d/t poss. choledecholithiasis CT abd/pelvis showed signs of possible duodenitis/PUD vs ? groove pancreatitis though Lipase was normal. He is s/p cholecystectomy. He is POD 1 s/p EGD/EUS/ERCP. + esophageal changes suspicious for Schneider's esophagus, biopsy obtained. + enlarged angela hepatis lymph nodes, FNA done. Sludge in bile duct, swept, + benign biliary stenosis treated with biliary sphincterectomy and covered metal stent in bile duct placed - F/U esophageal biopsy and lymph node FNA results - advance diet slowly as tolerated to low fat - Keep LR @ 100ml/hr but may DC if tolerating PO intake well - Protonix 40mg BID - F/U acute hepatitis panel, autoimmune liver dz serologies. Trend LFTs - F/u in GI clinic on discharge for + HCV - Avoid NSAIDs and ASA 5 days after sphinceterectomy - LFTs trending down Hepatitis C is positive preliminary and awaiting HCV RNA measurement,Hepatitis A IgG is pending and hepatitis B is negative KOBI, antimitochondrial antibody and anti-smooth muscle antibodies are pending Prediabetes - HbA1c 5.9% - lifestyle modifications including weight loss encouraged - follow up w/ PCP (3) Asthma: -Hold home albuterol inhaler -Albuterol nebs scheduled for scattered wheezing (mild) -Remains controlled without any symptoms (4) History of drug abuse: History of opioid, methamphetamine use. Reports last used 11/2018 Urine tox posit for meth (pt told GI that he was "exposed" about a week ago) Currently on buprenorphine, Follows with [facility], [place] -Will continue buprenorphine for now -Has remote history of IV drug abuse (5) Chronic back pain: Does not use gabapentin regularly -Hold gabapentin currently (6) Tobacco use: -Smoking cessation encouraged -Denies nicotine patch at this time DVT Prophylaxis -Low risk - Ambulate Pt does not follows with PCP for routine care. Reports previously followed with Dr Garcias and agrees to be seen by Dr. Garcias on discharge. Admission and Anticipated Discharge Date Admission Date: June 10, 2019 Anticipated date of discharge: 06/13/19 Subjective Pt is sitting up in bed in [facility]. Has some RUQ discomfort, says the pain he had on admission has much imp[roved. Tolerating clear liquid diet and now advanced to full liquid. He is s/p EUS with ERCP, stent placement into CBD and sphincterotomy yesterday w/ GI. Review of Systems Review of Systems: All systems reviewed & are unremarkable except as noted in HPI & below All systems reviewed and are unremarkable except as noted. Constitutional: no fever and no chills Respiratory: no cough and no dyspnea Cardiovascular: no chest pain, no palpitations and no edema Gastrointestinal: + abdominal pain (RUQ, much improved); no nausea and no vomiting Physical Exam Physical Exam: Physical Exam: middle aged male sitting up in bed in NAD Constitutional: well developed and well nourished; no acute distress and not ill appearing Eyes: PERRL, EOMI, conjunctivae normal, anicteric sclerae ENMT: external ear and nose normal, oropharynx normal, poor dentition Neck: trachea midline, no thyromegaly Respiratory: normal respiratory effort; no respiratory distress Auscultation: lungs clear to auscultation bilaterally, no wheezing, rhonchi, crackles Cardiovascular: Rate/Rhythm: regular rate and regular rhythm Heart Sounds: no murmur Gastrointestinal (Abdomen): Inspection/Auscultation: abdomen normal to inspection; abdomen not distended Percussion/Palpation: + abdomen tender (mild at epigastrium and right upper quadrant), abdomen soft; no guarding and abdomen not rigid Musculoskeletal: No acute arthritis involving any joints, moves all 4 extremities spontaneously Neurologic: Alert, awake and oriented x3. speech fluent, no facial asymmetry, moves all 4 extremities spontaneously, no focal sensory or motor deficit appreciated Results & Data ([facility]) Vital Signs (Past 12 Hours) Vital Signs Temp Pulse Pulse Pulse Resp BP BP 06/12/19 07:27 88 06/12/19 07:19 36.7 C 71 20 131/80 06/12/19 04:07 36.5 C 64 18 146/75 H 06/12/19 00:37 65 06/11/19 23:36 36.6 C 66 18 100/61 06/11/19 22:39 36.5 C 55 L 12 97/66 L 06/11/19 22:01 67 06/11/19 21:30 36.5 C 67 18 103/64 06/11/19 21:00 36.4 C L 60 16 99/59 L 06/11/19 20:30 36.4 C L 61 18 109/71 06/11/19 20:17 61 16 06/11/19 20:15 36.5 C 55 L 16 103/63 06/11/19 20:00 36.5 C 60 18 125/74 06/11/19 19:35 36.4 C L 55 L 17 109/69 Pulse Ox 06/12/19 07:27 06/12/19 07:19 93 06/12/19 04:07 95 06/12/19 00:37 06/11/19 23:36 94 06/11/19 22:39 96 06/11/19 22:01 06/11/19 21:30 95 06/11/19 21:00 96 06/11/19 20:30 98 06/11/19 20:17 95 06/11/19 20:15 100 06/11/19 20:00 94 06/11/19 19:35 95 Laboratory Results 06/12/19 06/12/19 06/11/19 Range/Units 05:41 05:41 05:57 WBC 9.48 (4.8-10.8) K/uL RBC 4.64 L (4.7-6.1) M/uL Hgb 13.8 L (14.0-18.0) g/dL Hct 39.8 L (42-52) % MCV 85.8 (80-100) fL MCH 29.7 (25-34) pg MCHC 34.7 (32-36) g/dL RDW Std Deviation 43.3 (36.4-46.3) fL RDW Coeff of Pierce 13.9 (11.5-14.5) % Plt Count 144 (130-400) K/uL MPV 9.7 (7.4-10.4) fL Immature Gran % (Auto) 0.2 % Neut % (Auto) 49.0 % Lymph % (Auto) 48.1 % [place] % (Auto) 2.4 % Eos % (Auto) 0.1 % Baso % (Auto) 0.2 % Immature Gran # (Auto) 0.02 (0.00-0.02) K/uL Neut # (Auto) 4.64 (1.4-6.5) K/uL Lymph # (Auto) 4.56 H (1.2-3.4) K/uL [place] # (Auto) 0.23 (0.11-0.59) K/uL Eos # (Auto) 0.01 (0-0.5) K/uL Baso # (Auto) 0.02 (0-0.2) K/uL Sodium 138 (136-145) mmol/L Potassium 4.9 (3.5-5.1) mmol/L Chloride 104 (98-107) mmol/L Carbon Dioxide 30 (21-32) mmol/L Anion Gap 4.0 (3-11) BUN 12 (7-18) mg/dl Creatinine 0.79 (0.6-1.4) mg/dl Est Cr Clr Drug Dosing 158.3 ml/min Est GFR ( Amer) 128.4 Est GFR (Non-Af Amer) 110.8 BUN/Creatinine Ratio 15.4 (10-20) Glucose 133 H (70-99) mg/dl Estimat Average Glucose 123 mg/dl Hemoglobin A1c 5.9 H (4.5-5.6) % Calcium 8.5 (8.5-10.1) mg/dl Total Bilirubin 3.1 H (0.2-1) mg/dl AST 87 H (15-37) U/L ALT 656 H (12-78) U/L Alkaline Phosphatase 202 H (45-117) U/L Total Protein 6.2 L (6.4-8.2) gm/dl Albumin 2.6 L (3.4-5.0) gm/dl Globulin 3.6 (2.5-4.0) gm/dl Albumin/Globulin Ratio 0.7 L (0.9-2) Medications Administered Current Inpatient Medications Al Hydrox/Mg Hydrox/Simethicone (Maalox Max) 15 ml PO Q6H PRN PRN Reason: Indigestion Stop: 07/10/19 18:03 Last Admin: 06/10/19 18:30 Dose: 15 ml Documented by: Albuterol (Ventolin 0.083% 2.5mg/3ml) 2.5 mg NEB Q6R FLOYD Stop: 07/10/19 18:59 Last Admin: 06/12/19 01:07 Dose: Not Given Documented by: Albuterol (Ventolin 0.083% 2.5mg/3ml) 2.5 mg NEB Q6H PRN PRN Reason: Wheezing Stop: 07/10/19 19:42 Buprenorphine HCl (Subutex) 8 mg SL BID@08,20 [facility] Stop: 07/10/19 19:59 Last Admin: 06/11/19 20:29 Dose: 8 mg Documented by: Lactated Ringer's (Lr) 1,000 mls @ 200 mls/hr IV .Q5H FLOYD Stop: 07/10/19 16:44 Last Admin: 06/12/19 04:21 Dose: 200 mls/hr Documented by: Ondansetron HCl (Zofran) 4 mg IV Q6H PRN PRN Reason: Nausea Stop: 07/10/19 16:44
[2019-06-12] MEDS: buprenorphine HCL 8 MG SUBL SL SCH ×2 (09:32→19:19)
--- NOTE | 2019-06-12 11:43 | Gastroenterology Progress Note ---
Date of Service June 12, 2019 Assessment & Plan (1) LFT elevation: (2) RUQ abdominal pain: (3) History of drug abuse: Pt is a 43 y/o male who presented RUQ abd pain, dark urine x 4 days, LFTs noted to be up, CT abd/pelvis showed signs of possible duodenitis/PUD vs ? groove pancreatitis though Lipase was normal. He is s/p cholecystectomy. He is POD 1 s/p EGD/EUS/ERCP. + esophageal changes suspicious for Schneider's esophagus, bx done. + enlarged angela hepatis lymph nodes, FNA done. Sludge in bile duct, swept, + benign biliary stenosis treated with biliary sphincterectomy and covered metal stent in bile duct placed. LFTs decreasing - F/U esophageal bx and lymph node FNA results - CL diet; advance slowly as tolerated to low fat - Keep LR @ 100ml/hr but may DC if tolerating PO intake well - Protonix 40mg BID - F/U acute hepatitis panel, autoimmune liver dz serologies. Trend LFTs - Will schedule f/u in GI clinic on discharge for + HCV - Avoid NSAIDs and ASA 5 days after sphinceterectomy Attg add: I interviewed and examined pt, reviewed chart and labs. He is now pain free, asking for food. Labs show improved LFT's. Plan as above. Admission and Anticipated Discharge Date Admission Date: June 10, 2019 Subjective Pt reports having some RUQ abd pain but feels hungry and wants some food. Denies any n/v overnight. Hasn't passed much flatus, no BMs. LFTs trending down Review of Systems Review of Systems: All systems reviewed & are unremarkable except as noted in HPI & below Physical Exam Constitutional: WD/WN, vitals as above well groomed, cooperative and comfortable Eyes: PERRL, conjunctivae normal, anicteric sclerae ENMT: external ear and nose normal, oropharynx normal Respiratory: normal respiratory effort, lungs clear to auscultation Cardiovascular: RRR, no murmur, no edema Gastrointestinal (Abdomen): Inspection/Auscultation: normal bowel sounds Percussion/Palpation: + abdomen tender (RUQ ) and abdomen soft Skin: no rashes, warm and dry no jaundice Psychiatric: A+Ox3, euthymic affect Lymphatic: no lymphedema Results & [facility] ([facility]) Vital Signs (Past 12 Hours) Vital Signs Temp Pulse Pulse Pulse Resp BP BP 06/12/19 11:16 36.7 C 81 18 126/72 06/12/19 07:27 88 06/12/19 07:19 36.7 C 71 20 131/80 06/12/19 04:07 36.5 C 64 18 146/75 H 06/12/19 00:37 65 Pulse Ox 06/12/19 11:16 93 06/12/19 07:27 06/12/19 07:19 93 06/12/19 04:07 95 06/12/19 00:37
[2019-06-12 12:41] LABS: Hepatitis A Antibody IgM NON-REACTIVE (NON-REACTIVE); Hepatitis B Core Antibody IgM NON-REACTIVE (NON-REACTIVE)
[2019-06-12] MEDS ORDERED: SIMETHICONE 80 MG CHEW PO PRN (18:54)
[2019-06-12] MEDS ORDERED: PROMETHAZINE HCL 25 MG TAB PO PRN (19:12)
[2019-06-12] MEDS: PANTOprazole 40 MG TAB PO SCH (21:27)
[2019-06-13 01:24] LABS: Amphetamine Urine, Confirm 1760 ng/mL (<250); Methamphetamine, Ur Confirm 5550 ng/mL (<250)
[2019-06-13 05:45] LABS: Albumin 3.1 g/dL (3.8-4.8); Alpha 1 Globulin 0.4 g/dL (0.2-0.3); Alpha 2 Globulin 0.6 g/dL (0.5-0.9); Anti Mitochondrial Antibody NEGATIVE (NEGATIVE); Anti Nuclear Antibody Screen NEGATIVE (NEGATIVE); Beta-1-Globulin 0.3 g/dL (0.4-0.6); Beta-2-Globulin 0.4 g/dL (0.2-0.5); Gamma Globulin 1.1 g/dL (0.8-1.7); Monoclonal Protein Band 1 DNR g/dL (NONE DETECTED); Monoclonal Protein Band 2 DNR g/dL (NONE DETECTED); Monoclonal Protein Band 3 DNR g/dL (NONE DETECTED); Smooth Muscle Antibody NEGATIVE (NEGATIVE)
[2019-06-13] MEDS: buprenorphine HCL 8 MG SUBL SL SCH (07:48)
[2019-06-13] MEDS: PANTOprazole 40 MG TAB PO SCH (07:48)
[2019-06-13 08:18] LABS: Hematocrit (blood only) 37.9 % (42-52); Hemoglobin 12.8 g/dL (14.0-18.0); Mean Corpuscular Hemoglobin 29.5 pg (25-34); Mean Corpuscular Hgb Conc 33.8 g/dL (32-36); Mean Corpuscular Volume 87.3 fL (80-100); Mean Platelet Volume 9.5 fL (7.4-10.4); Platelet Count 172 K/uL (130-400); RDW Coefficient of Variation 14.6 % (11.5-14.5); RDW Standard Deviation 46.8 fL (36.4-46.3); Red Blood Count 4.34 M/uL (4.7-6.1); White Blood Count 11.89 K/uL (4.8-10.8)
[2019-06-13 08:58] LABS: Albumin Globulin Ratio 0.7 (0.9-2); Albumin Level 2.7 gm/dl (3.4-5.0); BUN Creatinine Ratio 15.3 (10-20); Bilirubin,Total 1.3 mg/dl (0.2-1); Calcium 8.4 mg/dl (8.5-10.1); Creatinine Clr Calc Pharmacy 175.1 ml/min; Est GFR (African American) 131.9; Est GFR (Non-African American) 113.8; Globulin 3.6 gm/dl (2.5-4.0); Total Protein 6.3 gm/dl (6.4-8.2)
--- NOTE | 2019-06-13 10:18 | Discharge Summary ---
Date of Service June 13, 2019 Admission HPI Per Admitting Provider Pt is 43 y/o M with PMH opioid, methamphetamine drug abuse, currently on buprenorphine, asthma, tobacco use presented to ER with c/o abdominal pain. Pt reports past 4 days noticed dark yellow urine and yesterday noticed green color hard formed stool. Also states past 4 days with fatigue and sweats. States taking his temperature at home and no noted fevers. This morning started with aching to RUQ. Pt initially denies nausea but reports nausea last night. Denies vomiting or diarrhea. Reports intermittent heartburn. Ate pancakes for breakfast this morning. Last night took 2GM Tylenol and this morning took 2 GM Tylenol. Chronic back pain and reports takes Ibuprofen 800mg three times a day approx 5 times a week. Denies alcohol use. Reports last used methamphetamines in 11/2018. Pt on buprenorphine and denies any other recent drug use. Denies herbal drugs, mushroom use. Denies h/o IV drug abuse. Hx tattoo. H/O cholecystectomy. Denies melena, hematochezia, BROOKE, dizziness, syncope, vision changes, neck pain, CP, SOB, orthopnea, palpitations, cough, sore throat, choking, otalgia, rhinorrhea, paresthesias, weakness, extremity weakness, extremity edema, rashes, dysuria, urinary frequency or retention. Admission Exam Per Admitting Provider General: no distress, obese Head: normocephalic, atraumatic Eyes: PERRL, EOM's intact, conjunctiva non-injected, +icteric ENT: normal inspection external ears, nose, mucous membranes mildly dry Neck: supple, trachea midline Lungs: no respiratory distress, clear to auscultation, no rhonchi, rales CV: RRR, no murmur, no pretibial edema Abd: normal BS, protuberant, soft, + tenderness to palpation RUQ Ext: no cyanosis, no calf tenderness Neuro: A&O x 3, no focal deficits noted, normal affect Skin: warm, dry Principal Diagnosis Abdominal pain, elevated LFTs Sludge in bile duct and benign biliary stenosis s/p biliary sphincterectomy and covered metal stent in bile duct placement Hepatitis C Schneider's esophagus (new diagnosis) Prediabetes Discharge Exam Physical Exam: middle aged obese male sitting up in bed in [facility] Constitutional: well developed and well nourished; no acute distress and not ill appearing Eyes: PERRL, EOMI, conjunctivae normal, anicteric sclerae ENMT: external ear and nose normal, oropharynx normal, poor dentition Neck: trachea midline, no thyromegaly Respiratory: normal respiratory effort; no respiratory distress Auscultation: lungs clear to auscultation bilaterally, no wheezing, rhonchi, crackles Cardiovascular: Rate/Rhythm: regular rate and regular rhythm Heart Sounds: no murmur Gastrointestinal (Abdomen): Inspection/Auscultation: abdomen normal to inspection, obese; abdomen not distended Percussion/Palpation: abdomen nontender (previously had mild pain at epigastrium and right upper quadrant), abdomen soft; no guarding and abdomen not rigid Musculoskeletal: No acute arthritis involving any joints, moves all 4 extremities spontaneously Neurologic: Alert, awake and oriented x3. speech fluent, no facial asymmetry, moves all 4 extremities spontaneously, no focal sensory or motor deficit appreciated Discharge Data Allergies Allergy/AdvReac Type Severity Reaction Status Date / Time acetaminophen Allergy Unknown redness Verified 06/10/19 14:28 all over body Consultations 06/10/19 14:44 ED Decision to Admit Stat 06/10/19 14:53 Consult Gastroenterology Stat 06/10/19 16:45 Consult Gastroenterology Routine Procedures Performed Operation Date: 06/11/19 09:10 Actual Procedures p Endoscopic Ultrasonography Upper,(Not Applicable) - Ganga Hilliard MD s Endoscopic Retrograde Cholangiopancreatogram(Not Applicable) - Ganga Hilliard MD Ordered Studies 06/10/19 13:30 CT abd pelvis IV con only Stat IMPRESSION: 1. Bowel wall thickening involving the second and third portion of the duodenum with adjacent inflammatory change and edema tracking along the right paracolic gutter. Findings favor a duodenitis/peptic ulcer disease. A groove pancreatitis could also have a similar appearance. Recommend correlation with pancreatic enzymes. 2. Periportal and distal paraesophageal lymphadenopathy which could be reactive. Follow-up recommended to ensure resolution. 3. In addition, follow-up endoscopy is recommended for further evaluation of the duodenal abnormality. 4. Small cluster of tree-in-bud nodular opacities within the base of the right lower lobe. This favors inflammatory/infectious process. 06/11/19 12:30 FL ERCP biliary ductal Routine Impression: - The major papilla appeared edematous and stenotic. 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 - The biliary tree was swept and sludge was found. - One covered metal biliary stent was placed into the common bile duct. Recommendation: - Return patient to [facility] for [facility] care. - Repeat ERCP in 2 months to remove stent. - Repeat LFTs tomorrow. - Recall GI if needed. 06/11/19 16:58 US upper EUS PACS images Routine Impression: - There was no sign of significant pathology in the ampulla. - Hyperechoic material consistent with sludge was visualized endosonographically in the common bile duct. - Evidence of a cholecystectomy. - There was no sign of significant pathology in the entire pancreas. - Many enlarged lymph nodes were visualized in the angela hepatis region. Tissue was obtained from this exam, and results are pending. However, the endosonographic appearance is benign inflammatory changes. Fine needle aspiration performed. - There was no evidence of significant pathology in the left lobe of the liver. - Endosonographic images of the left adrenal gland were unremarkable. - The celiac trunk was endosonographically normal. Recommendation: - Perform an ERCP today. - Await cytology results. Hospital Course (1) RUQ abdominal pain: (2) LFT elevation: Pt is 43 y/o M with PMH opioid, methamphetamine drug abuse, currently on buprenorphine, asthma, tobacco use presented to ER with c/o abdominal pain, fatigue and sweats x 4 days. Denies fever. Took 2 doses of 2GM Tylenol at night and in the morning prior to admission. CT ABD/PELVIS: 1. Bowel wall thickening involving the second and third portion of the duodenum with adjacent inflammatory change and edema tracking along the right paracolic gutter. Findings favor a duodenitis/peptic ulcer disease. A groove pancreatitis could also have a similar appearance. Recommend correlation with pancreatic enzymes. 2. Periportal and distal paraesophageal lymphadenopathy which could be reactive. Follow-up recommended to ensure resolution. 3. In addition, follow-up endoscopy is recommended for further evaluation of the duodenal abnormality. 4. Small cluster of tree-in-bud nodular opacities within the base of the right lower lobe. This favors inflammatory/infectious process. DDX considered on admission : pancreatitis, choledocholithiasis, acute liver injury, hepatitis, cholangitis - lipase not elevated - hx of cholecystectomy GI consulted - EUS/ ERCP on (2/25) due to possible choledocholithiasis CT abd/pelvis showed signs of possible duodenitis/PUD vs ? groove pancreatitis though Lipase was normal. He is s/p cholecystectomy. He is POD 2 s/p EGD/EUS/ERCP. + esophageal changes suspicious for Schneider's esophagus, biopsy obtained. + enlarged angela hepatis lymph nodes, FNA done. Sludge in bile duct, swept, + benign biliary stenosis treated with biliary sphincterectomy and covered metal stent in bile duct placed - Esophageal biopsy- c/w Barretts' esophagus, pt started on pantoprazole twice a day - Follow up lymph node FNA results - Protonix 40mg BID - Follow up acute hepatitis panel, autoimmune liver dz serologies. Trend LFTs - Follow up in GI clinic after discharge for + HCV, Schneider's esophagus (new diagnosis), and also Stent removal - Avoid NSAIDs and ASA 5 days after sphincterectomy - LFTs trending down Hepatitis C Ab is positive preliminary and awaiting HCV RNA viral load measurement,Hepatitis A IgG is pending and hepatitis B is negative KOBI, antimitochondrial antibody and anti-smooth muscle antibodies are pending Prediabetes - HbA1c 5.9% - lifestyle modifications including weight loss encouraged - follow up w/ PCP (3) Asthma: -Hold home albuterol inhaler -Albuterol nebs prn while inpt -Remains controlled without any symptoms (4) History of drug abuse: History of opioid, methamphetamine use. Reports last used 11/2018 Urine tox posit for meth (pt told GI that he was "exposed" about a week ago) Currently on buprenorphine, Follows with [facility] -Will continue buprenorphine for now -Has remote history of IV drug abuse (5) Chronic back pain: Does not use gabapentin regularly -Hold gabapentin currently (6) Tobacco use: -Smoking cessation encouraged -Denies nicotine patch at this time DVT Prophylaxis -Low risk - Ambulate Pt does not follows with PCP for routine care. Reports previously followed with Dr Garcias and agrees to be seen by Dr. Garcias on discharge. Total Time Total Time Spent Total Time Spent (In Minutes): 40 Total Time Includes: Examination of the Patient, Discharge Planning, Medication Reconciliation and Communication With Other Providers Discharge Plan Discharge Items Patient Disposition: Home - Self-Care Reason For Visit: ELEVATED LFT'S Discharge Diagnosis: Abdominal pain, elevated LFTs Sludge in bile duct and benign biliary stenosis s/p biliary sphincterectomy and covered metal stent in bile duct placement Hepatitis C Schneider's esophagus (new diagnosis) Prediabetes Activity: As commented below Non-emergency contact: Primary Care Provider and Clinical Application Specialist Call non-emergency contact if: you have any medication questions and your symptoms worsen Follow-up/Referrals: PCP,NO [Primary Care Provider] - Diet: Low Fat Addtl Attending Provider Instructions: Follow up with Dr. Garcias in 1 week. At that time you should have blood work done (CMP) to make sure your liver enzymes are normalizing. Follow up wit gastroenterology, for + Hep C, Schneider's esophagus, and stent removal, you will be contacted about the appointment. Make sure to take pantoprazole 40 mg twice a day. Do not take NSAIDS (such as Ibuprofen, Aleve, Motrin) or Aspirin for next 4 days. Avoid any over the counter medications or drugs that you don't need. Make sure to talk to your primary care doctor or talent rep before you start taking any new medication. Pending Studies at Discharge: Yes Studies:: lymph node FNA - cytology autoimmune liver disease panel Stand-Alone Forms: My [facility] [employer], Smoking Cessation Medications and DC Order Prescriptions: New pantoprazole 40 mg Tablet,Delayed Release (Dr/Ec) 40 mg PO BID 30 Days Qty: 60 RF: 0 Continued gabapentin 400 mg capsule 400 mg PO TID RF: 0 acetaminophen [Tylenol Extra Strength] 500 mg Tablet 500 mg PO Q6H PRN (Reason: Pain) RF: 0 albuterol sulfate 90 mcg/actuation HFA aerosol inhaler 1 - 2 puff INHALATION Q4H PRN (Reason: Shortness Of Breath Or Wheezing) RF: 0 buprenorphine HCl 8 mg tablet, sublingual 8 mg SUBLINGUAL BID RF: 0 Discharge Orders: Discharge Order (Routine); Ordered 06/13/19 Ordered By: Sean Moreno Admission Data Admit Date/Time: 06/10/19 15:16 Attending Provider: Sean Moreno Admit Provider: Gino Yates Primary Care Provider: PCP,NO Other Providers: Gino Yates ; Shanique Booth ; César Clemons ; Murphy John
[2019-06-13] MEDS ORDERED: POLYETHYLENE (MIRALAX) 17 GM PACK PO ONE (10:21)
--- NOTE | 2019-06-17 16:42 | Coding Query ---
CODING QUERY To promote full compliance with coding requirements relating to patient care, provider participation is requested in all cases of assistant buyer uncertainty. Please assist us with the question(s) below: Coding Question(s): Patient admitted with abdominal pain ; ERCP with biliary stent . Please document, if known or suspected, the etiology of the abdominal pain. Thanks for your help! Roberto Fajardo [facility] Physician's Response(s): It was believed initially that pt's pain was caused by choledocholithiasis and therefore ERCP was performed. On ERCP, The major papilla appeared edematous and stenotic. No stone was reported but biliary papillary stenosis was noted and treated by biliary sphincterotomy. Stenosis was likely causing edema and sludge and pt's pain. However pt has multiple other reasons to have abd. pain - duodenitis noted on CT, esophagitis noted on EGD, LFTs elev. from hep C/ hepatitis. Principal Diagnosis: "that condition established after study, to be chiefly responsible for occasioning the admission of the patient to the hospital for care." Co-Existing Principal Diagnosis: "when two or more diagnoses equally meet the criteria for principal diagnosis as determined by the circumstances of admission, diagnostic work up, and/or therapy provided, and the Alphabetic Index, Tabular List, or another coding guideline does not provide sequencing direction, any one of the diagnoses may be sequenced first." "When the physician has documented what appears to be a current diagnosis in the body of the record, but has not included the diagnosis in the final diagnostic statement, the physician should be asked whether the diagnosis should be added." (Source Coding Clinic 2 QTR90. p3-4) [facility]
== END 2019-06-13 12:14 | disposition home or self-care (01) | DRG 989 ==
LOC: ED 13:01 → 2N 15:16 → SUATTDRO 15:16 → 2N 16:13